=== PATIENT | female | born 1985 | race American Indian/Alaskan Native ===

== ENCOUNTER 2016-05-11 20:27 | Outpatient (CLI) | payer OTHER, MEDICAID ==
[2016-05-11] MEDS ORDERED: LACTATED RINGERS 500 ML IV ONE (21:28)
[2016-05-11 21:48] VITALS: BP 137/75
[2016-05-11 21:58] LABS: Bilirubin,Urine NEG (Negative); Blood,Urine NEG (Negative); Ketones,Urine TR mg/dL (Negative); Leukocyte Esterase,Urine NEG (Negative); Mucus,Urine 3+ /HPF; Nitrite,Urine NEG (Negative); Urobilinogen,Urine < 2.0 mg/dL (<2.0)
== END 2016-05-11 22:19 | disposition home or self-care (01) ==
LOC: TRG 20:27
PROVIDERS: ATTEND Obstetrics & Gynecology
DX: O26.892 Other specified pregnancy related conditions, second trimester (principal); O21.2 Late vomiting of pregnancy; M54.5 Low back pain; R10.2 Pelvic and perineal pain; Z3A.25 25 weeks gestation of pregnancy
CPT/HCPCS: 81001

== ENCOUNTER 2016-05-15 13:29 | Inpatient (IN) | payer OTHER, MEDICAID ==
--- NOTE | 2016-05-15 15:09 | History and Physical Report ---
History of Present Illness Date of examination: 05/15/16 Chief complaint: Migraine headache with blurred vision x 4 days. History of present illness: 31 yo at 26.1 weeks presenting with severe migraine headaches x 4 days with visual changes and unrelieved by medication (Fioricet, Imetrex and Phenergan). Pt with known CHTN on Labetalol 300mg po BID. BPs have ranged from 134-185/62-92 throughout the course of her . 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 History: herpes (2014), other (SAB x2) Family/Genetic History: none Social history: no significant social history - Obstetrical History Expected Date of Delivery: 08/20/16 Actual Gestation: 26 Week(s) 1 Day(s) : 3 Para: 1 Hx # Term Pregnancies: 1 Number of Pregnancies: 0 Spontaneous Abortions: 1 Induced : 0 Number of Living Children: 1 #1 Infant Gender: Male year: 2,[birth year] Birthweight: 6 lb 9.6 oz Method of Delivery: (primary c/s due to back surgery with plates and screws) Gestational age at delivery: 38 Complications: none Medications and Allergies Allergies Allergy/AdvReac Type Severity Reaction Status Date / Time No Known Allergies Allergy Unverified 08/08/15 14:46 Home Medications Medication Instructions Recorded Confirmed Last Taken Type Butalb/Acetamin/Caff 50-325-40 1 tab PO DAILY PRN 08/08/15 11/14/15 2 Weeks Ago History [Fioricet] Cholecalciferol (Vitamin D3) 1,000 unit PO DAILY 08/08/15 11/14/15 1 Month Ago History [Vitamin D] Lisinopril/Hydrochlorothiazide 1 tab PO DAILY 08/08/15 11/14/15 11/14/15 07:00 History [Lisinopril-Hctz 10-12.5 mg Tab] Labetalol [Normodyne TAB] 200 mg PO BID #60 tablet 03/23/16 Unknown Rx Active Meds: Active Medications Acetaminophen (Tylenol) 650 mg PO Q4H PRN PRN Reason: Pain MILD(1-3)/Fever >100.5/DUGGAN Acetaminophen/Butalbital/Caffeine (Fioricet) 2 tab PO Q4H PRN PRN Reason: Headache Lactated Ringer's (Lactated Ringers) mls @ 125 mls/hr IV DIRECT ZACARIAS Labetalol HCl (Normodyne) 300 mg PO BID [facility] Multivitamins/Iron/Calcium ( Vitamin) 1 each PO QDAY ZACARIAS Review of Systems All systems: negative Constitutional: other (pain due to headache 12/16) - Physical Exam Breasts: Positive: deferred Cardiovascular: Regular rate Lungs: Positive: Normal air movement Abdomen: Positive: other (Gravid) Uterus: Positive: enlarged Extremities: Positive: normal Deep Tendon Reflex Grade: Normal +2 - Obstetrical FHR comments: Not on monitor at the time of exam Results All other labs normal. Assessment and Plan A: 31yo at 26.1 weeks with migraine headache x 4 days with blurred vsion, not relieved by medication. P: Routine antepartum care Intermittent monitoring Neuro consultation for headache
[2016-05-15] MEDS ORDERED: APRESOLINE IV PRN (16:20)
--- NOTE | 2016-05-15 16:23 | Event Note ---
Date: 05/15/16 Patient is well known to me from a prior admission on 03/23/2016. She is a 31- year-old at 26 wks directly [facility] for migrainous headache. She has a past history of hypertension and migraine headaches and is currently on Labetalol 300mg BID and Fioricet w/ codiene. She has had severe migraine headaches since she became per patient. During her last admission, Neurology consult was requested. Patient however left AMA because she was not rxed a narcotic. It appears she still has not been seen by Neurology on outpatient basis. Patient claims the reasons are that she was informed of need for CT head and she declined that. She also claims to have insurance issues. She does give an oral history of numerous prior CT scans of the head prior to conception, she claims the last was performed sometime in July this year but she is unsure of the result. On the floor today, her blood pressure is within normal limits. She currently denies scotomata, abd pain or N/V. She has no vaginal bleeding, no loss of fluid, no contractions Plan at this time is to obtain HELLP labs, 24 hr urine protein and re-start her meds Consult has been placed to neurology but he unfortunately will be unavailable till tomorrow
[2016-05-15] MEDS: FIORICET PO PRN ×2 (16:31→20:19)
[2016-05-15 17:49] LABS: Hematocrit 32.2 % (30.3-42.9); Hemoglobin 10.3 gm/dl (10.1-14.3); Mean Corpuscular HGB Conc 32 % (30-34); Mean Corpuscular Hemoglobin 27 pg (28-32); Mean Corpuscular Volume 83 fl (79-97); Platelet Count 188 K/mm3 (140-440); Red Blood Count 3.86 M/mm3 (3.65-5.03); Red Cell Distribution Width 16.8 % (13.2-15.2); White Blood Count 11.5 K/mm3 (4.5-11.0)
[2016-05-15] MEDS ORDERED: NORMODYNE IV ONE (18:00)
[2016-05-15 18:09] LABS: Alanine Aminotransferase 20 units/L (7-56); Albumin 3.5 g/dL (3.9-5); Alkaline Phosphatase 74 units/L (35-129); Anion Gap 16 mmol/L; Bilirubin,Total 0.2 mg/dL (0.1-1.2); Blood Urea Nitrogen 6 mg/dL (7-17); Calcium 9.3 mg/dL (8.4-10.2); Carbon Dioxide 21 mmol/L (22-30); Chloride 98.6 mmol/L (98-107); Glucose 94 mg/dL (65-100); Potassium 3.9 mmol/L (3.6-5.0); Sodium 132 mmol/L (137-145); Total Protein 6.9 g/dL (6.3-8.2)
[2016-05-15 18:11] LABS: Bilirubin,Direct < 0.2 mg/dL (0-0.2)
[2016-05-15] MEDS: NORMODYNE PO SCH (22:23)
[2016-05-16] MEDS: LACTATED RINGERS 1,000 ML IV SCH ×2 (01:20→10:05)
[2016-05-16] MEDS ORDERED: ZOFRAN ONE ×2 (01:56→09:49)
[2016-05-16] MEDS ORDERED: ZOFRAN IV ONE (02:05)
[2016-05-16] MEDS: TYLENOL PO PRN ×3 (07:12→20:01)
--- NOTE | 2016-05-16 07:17 | Admit Criteria Form ---
Admission Criteria Documentation: HEADACHES Clinical Indications for Admission to Inpatient Care (Place 'X' for any and all applicable criteria): Admission is indicated for ANY ONE of the following(1)(2)(3)(4): [X]I. Inpatient admission required rather than observational care (Also use Headaches: Observation Care as appropriate) because of ANY ONE of the following: [X]a) Severe pain requiring acute inpatient management [ ]b) Altered mental status that is severe or persistent [ ]c) Vomiting or dehydration that is severe or persistent [ ]d) New-onset focal neurologic deficit that is severe or persistent [X]e) Hypertension requiring inpatient treatment [ ]f) Severe (new) neurologic findings requiring inpatient care as indicated by ANY ONE of following(9)(10): [ ]1) Papilledema [ ]2) Cerebral edema [ ]3) Mass effect on CT scan [ ]4) Cerebral bleeding, ischemia, or vasospasm(16) [ ]5) Hydrocephalus(17) [ ]6) Uncontrolled seizures [ ]g) IV infusion of anticoagulation, platelet inhibitors vasoactive, or antiarrhythmic medication. [ ]h) Cerebral bleeding, hydrocephalus, or vasospasm monitoring (16) [ ]i) Increased intracranial pressure or cerebral edema monitoring (17) [X]j) Other condition, treatment or monitoring requiring inpatient admission [ ]II. Unruptured but threatening aneurysm or vascular malformation [ ]III. Venous sinus thrombosis [ ]IV. Increased intracranial pressure [ ]V. Cerebral spinal fluid leak with decreased intracranial pressure [ ]. Medication-overuse headache that has failed all outpatient management options [ ]VII. Vasculitis (eg, giant cell (temporal) arteritis, central nervous system vasculitis) requiring IV corticosteroids, IV antithrombotic therapy, or inpatient monitoring (eg, visual symptoms or findings, other ischemic manifestations)[A](10)(11) Extended stay beyond goal length of stay may be needed for (27): [ ]a) Intractable migraine [ ]b) Subarachnoid or intracranial hemorrhage [ ]c) Malignant hypertension [ ]d) Detoxification from drug withdrawal in medication-overuse headache (29) The original [facility] [email or web address] content created by [facility] [email or web address] has been revised. The portions of the content which have been revised are identified through the use of italic text or in bold, and [facility] [email or web address] has neither reviewed nor approved the modified material.All other unmodified content is copyright [facility]. Please see references footnoted in the original [facility] edition 2016 Admission Criteria Met: Yes
[2016-05-16] MEDS ORDERED: STADOL IV PRN (08:00)
--- NOTE | 2016-05-16 08:03 | Ultrasound Report ---
BIOPHYSICAL PROFILE: Technique: Transabdominal ultrasound with Doppler interrogation. 2 - breathing movements 2 - movements 2 - posture and tone 2 - Qualitative amniotic fluid volume 8 - TOTAL SCORE OF POSSIBLE 8 Heart Rate (bpm) 165
[2016-05-16] MEDS ORDERED: PRENATAL VITAMIN PO SCH (10:00)
[2016-05-16] MEDS: NORMODYNE PO SCH (10:08)
[2016-05-16] MEDS: ZOFRAN IV PRN ×2 (14:05→20:00)
--- NOTE | 2016-05-16 14:29 | Progress Note ---
Assessment and Plan - Patient Problems (1) Chronic hypertension affecting Onset Date: 05/16/16 Current Visit: No Status: Chronic (2) Migraine Onset Date: 05/16/16 Current Visit: No Status: Chronic Qualifiers: Migraine type: periodic headache syndrome Status migrainosus presence: S Intractability: I (3) 26 weeks gestation of Onset Date: 05/16/16 Current Visit: Yes Status: Acute Plan to address problem: A: IUP @ 26 2/7 weeks Chronic hypertension affecting - BP's controlled on Labetolol 300mg BID Migraine headaches - unrelieved with Fioricet P: Continue with present management Awaiting 24hr urine collection Neurology consultation pending Subjective - Subjective Date of service: 05/16/16 Principal diagnosis: IUP @ 26 2/7 weeks; Chronic hypertension; Migraine Interval history: Pt still complains of migraine headaches, and was seen by the Neurologist today. +FM No bleeding or contractions. Patient reports: movement normal, no new complaints, no loss of fluid, no vaginal bleeding, no contractions Objective - Vital Signs Vital Signs: Vital Signs - 12hr 05/16/16 05/16/16 05/16/16 02:26 03:26 04:32 Temperature Pulse Rate 88 100 H 92 H Pulse Rate [ From Monitor] Respiratory Rate Blood Pressure 118/58 122/57 121/69 Blood Pressure [Right Arm] O2 Sat by Pulse Oximetry 05/16/16 05/16/16 05/16/16 05:26 06:26 07:03 Temperature Pulse Rate 95 H 96 H 91 H Pulse Rate [ From Monitor] Respiratory Rate Blood Pressure 118/65 120/63 Blood Pressure [Right Arm] O2 Sat by Pulse 98 Oximetry 05/16/16 05/16/16 05/16/16 07:04 07:06 07:08 Temperature 97.6 F Pulse Rate 93 H 85 Pulse Rate [ 96 H From Monitor] Respiratory 20 Rate Blood Pressure 131/60 Blood Pressure 131/60 [Right Arm] O2 Sat by Pulse 98 Oximetry 05/16/16 05/16/16 05/16/16 07:12 07:13 07:18 Temperature Pulse Rate 104 H 91 H Pulse Rate [ From Monitor] Respiratory 20 Rate Blood Pressure Blood Pressure [Right Arm] O2 Sat by Pulse 99 98 Oximetry 02/08/17 02/08/17 02/08/17 07:23 07:26 07:28 Temperature Pulse Rate 96 H 95 H 92 H Pulse Rate [ From Monitor] Respiratory Rate Blood Pressure 115/61 Blood Pressure [Right Arm] O2 Sat by Pulse 98 98 Oximetry 05/16/16 05/16/16 05/16/16 07:38 07:44 07:49 Temperature Pulse Rate 74 85 82 Pulse Rate [ From Monitor] Respiratory Rate Blood Pressure Blood Pressure [Right Arm] O2 Sat by Pulse 98 98 97 Oximetry 05/16/16 05/16/16 05/16/16 07:54 07:59 08:04 Temperature Pulse Rate 86 89 72 Pulse Rate [ From Monitor] Respiratory Rate Blood Pressure Blood Pressure [Right Arm] O2 Sat by Pulse 98 97 98 Oximetry 05/16/16 05/16/16 05/16/16 08:09 08:14 08:35 Temperature Pulse Rate 94 H 95 H Pulse Rate [ From Monitor] Respiratory 20 Rate Blood Pressure Blood Pressure [Right Arm] O2 Sat by Pulse 99 97 Oximetry 05/16/16 05/16/16 05/16/16 09:46 09:47 09:49 Temperature Pulse Rate 76 91 H 86 Pulse Rate [ From Monitor] Respiratory Rate Blood Pressure 143/61 Blood Pressure [Right Arm] O2 Sat by Pulse 95 94 Oximetry 05/16/16 05/16/16 05/16/16 09:50 09:53 09:55 Temperature Pulse Rate 86 82 73 Pulse Rate [ From Monitor] Respiratory Rate Blood Pressure Blood Pressure [Right Arm] O2 Sat by Pulse 96 93 96 Oximetry 05/16/16 05/16/16 05/16/16 10:00 10:01 10:06 Temperature Pulse Rate 72 88 78 Pulse Rate [ From Monitor] Respiratory Rate Blood Pressure Blood Pressure [Right Arm] O2 Sat by Pulse 95 94 98 Oximetry 05/16/16 05/16/16 05/16/16 10:08 10:09 10:11 Temperature Pulse Rate 84 81 82 Pulse Rate [ From Monitor] Respiratory Rate Blood Pressure 143/61 119/60 Blood Pressure [Right Arm] O2 Sat by Pulse 97 Oximetry 05/16/16 05/16/16 05/16/16 10:15 10:21 10:26 Temperature Pulse Rate 99 H 82 85 Pulse Rate [ From Monitor] Respiratory Rate Blood Pressure Blood Pressure [Right Arm] O2 Sat by Pulse 98 98 100 Oximetry 05/16/16 05/16/16 05/16/16 10:31 10:35 10:41 Temperature Pulse Rate 89 87 84 Pulse Rate [ From Monitor] Respiratory Rate Blood Pressure Blood Pressure [Right Arm] O2 Sat by Pulse 99 100 100 Oximetry 05/16/16 05/16/16 05/16/16 10:43 10:46 10:51 Temperature Pulse Rate 88 89 98 H Pulse Rate [ From Monitor] Respiratory Rate Blood Pressure 110/55 Blood Pressure [Right Arm] O2 Sat by Pulse 100 100 Oximetry 05/16/16 05/16/16 05/16/16 10:56 11:01 11:06 Temperature Pulse Rate 85 87 100 H Pulse Rate [ From Monitor] Respiratory Rate Blood Pressure Blood Pressure [Right Arm] O2 Sat by Pulse 100 100 95 Oximetry 05/16/16 05/16/16 05/16/16 11:13 11:43 11:55 Temperature Pulse Rate 89 86 90 Pulse Rate [ From Monitor] Respiratory Rate Blood Pressure 108/55 98/50 Blood Pressure [Right Arm] O2 Sat by Pulse 98 Oximetry 05/16/16 05/16/16 05/16/16 12:00 12:05 12:10 Temperature Pulse Rate 88 93 H 91 H Pulse Rate [ From Monitor] Respiratory Rate Blood Pressure Blood Pressure [Right Arm] O2 Sat by Pulse 97 98 97 Oximetry 05/16/16 05/16/16 05/16/16 12:13 12:29 12:34 Temperature Pulse Rate 90 102 H 90 Pulse Rate [ From Monitor] Respiratory Rate Blood Pressure 132/68 Blood Pressure [Right Arm] O2 Sat by Pulse 98 97 Oximetry 05/16/16 05/16/16 05/16/16 13:03 13:09 13:15 Temperature Pulse Rate 97 H 94 H 102 H Pulse Rate [ From Monitor] Respiratory Rate Blood Pressure Blood Pressure [Right Arm] O2 Sat by Pulse 98 98 97 Oximetry 05/16/16 05/16/16 05/16/16 14:01 14:02 14:07 Temperature Pulse Rate 93 H 87 85 Pulse Rate [ From Monitor] Respiratory 20 Rate Blood Pressure 128/60 Blood Pressure [Right Arm] O2 Sat by Pulse 98 97 Oximetry 05/16/16 05/16/16 05/16/16 14:12 14:17 14:22 Temperature Pulse Rate 86 85 89 Pulse Rate [ From Monitor] Respiratory Rate Blood Pressure 120/59 Blood Pressure [Right Arm] O2 Sat by Pulse 99 99 98 Oximetry - Exam Breasts: deferred Cardiovascular: Regular rate Abdomen: Present: normal appearance, soft Uterus: Present: normal FHR: category 1 Uterine Contraction Monitor Mode: External Uterine Contraction Pattern: Absent - Labs Labs: Abnormal Labs 05/15/16 05/15/16 Unknown Unknown WBC 11.5 H MCH 27 L RDW 16.8 H Sodium 132 L Carbon Dioxide 21 L BUN 6 L Creatinine 0.5 L Albumin 3.5 L Laboratory Results - last 24 hr 05/15/16 05/15/16 Unknown Unknown WBC 11.5 H RBC 3.86 Hgb 10.3 Hct 32.2 MCV 83 MCH 27 L MCHC 32 RDW 16.8 H Plt Count 188 Sodium 132 L Potassium 3.9 Chloride 98.6 Carbon Dioxide 21 L Anion Gap 16 BUN 6 L Creatinine 0.5 L Estimated GFR > 60 BUN/Creatinine Ratio 12.00 Glucose 94 Calcium 9.3 Total Bilirubin 0.2 Direct Bilirubin < 0.2 Indirect Bilirubin 0.0 AST 17 ALT 20 Alkaline Phosphatase 74 Total Protein 6.9 Albumin 3.5 L Albumin/Globulin Ratio 1.0
--- NOTE | 2016-05-16 19:42 | Discharge Summary ---
Providers - Providers Date of Admission: 05/16/16 09:24 Date of discharge: 05/16/16 Attending physician: KEITH FRYE MD 05/15/16 14:59 Consult to Physician [CONS] Routine Consulting Provider: ANDER BARNARD Reason For Exam: Migraine Place consult to:: KEMI Notified:: YES Phone number called:: [phone]- Was contact made?: Yes If yes, spoke with:: MALI Time called:: 16:00 05/16/16 15:16 Consult to Physician [CONS] Urgent Consulting Provider: DANITA BLAIR Reason For Exam: Migraines Notified:: Office Was contact made?: Yes Time called:: 15:20 Primary care physician: KEITH FRYE MD Hospitalization Reason for admission: IUP - , other (IUP @ 26 2/7 weeks; Chronic hypertension; Migraine headaches) Other procedures: none complications: none Discharge diagnosis: other (IUP @ 26 2/7 weeks; Chronic hypertension; Migraines) Hospital course: Patient is well known from a prior admission on 03/23/2016. She is a 31-year- old BF at 26 weeks directly admitted from [facility] for migraine headaches. She has a past history of chronic hypertension and migraine headaches and is currently on Labetalol 300mg BID and Fioricet w/ codiene. She has had severe migraine headaches since she became per patient. During her last admission, Neurology consult was requested, but she left AMA because she was denied narcotics. It appeared that she still was not been seen by a Neurologist on an outpatient basis because she was informed that she needed a head CT and she declined. Since admission, her blood pressure has been within normal limits, and she denied scotomata, abd pain or N/V. She had no vaginal bleeding, no loss of fluid, no contractions Her HELLP labs have been normal and her 24 hr urine showed 200mg protein. She was seen by the Neurologist but his report is not available at this time ( Dr Corral [phone]). She will be transferred to [facility] per Dr Perdomo ([phone]) since she has [employer] insurance. Condition at discharge: Good Disposition: DC/TX ANOTHER TYPE HEALTHCARE - Discharge Diagnoses (1) Chronic hypertension affecting Status: Chronic (2) Migraine Status: Chronic Qualifiers: Migraine type: periodic headache syndrome Status migrainosus presence: S Intractability: intractable Qualified Code(s): G43.C1 - Periodic headache syndromes in child or adult, intractable (3) 26 weeks gestation of Status: Acute Plan - Provider Discharge Summary Activity: routine Diet: routine Instructions: routine Additional instructions: [] Smoking cessation referral if applicable(refer to patient education folder for contact #) [] Refer to [facility] Booklet Call your doctor immediately for: * Fever > 100.5 * Heavy vaginal bleeding ( >1 pad per hour) * Severe persistent headache * Shortness of breath * Reddened, hot, painful area to leg or breast * Drainage or odor from incision. * Keep incision clean and dry at all times and follow doctor's instructions regarding bathing/showering - Follow up plan Follow up: KEITH DIAMOND MD [Primary Care Provider] - 7 Days
[2016-05-16 19:50] VITALS: BP 143/74
--- NOTE | 2016-05-17 07:19 | Consultation ---
ROOM#: [id number]. HISTORY OF PRESENT ILLNESS: This is a 31-year-old black female 3, para 1 (1 miscarriage) this is the 27th week of this patient who presents to [facility], room 2002. Consultation is for Dr. Reyes for evaluation and management of headaches. By the patient's history, she started having migraine headaches at age 17. These have become progressively more severe. She did not have them with her first , but that was a miscarriage. The second she had mild headaches, but does not specifically remember details of her headaches. After her second , she started on Ultram, Fioricet and [id number] medications for daily migraine headaches. Occasionally she took Imitrex this did not seem to help. With this nothing unusual has happened. She has suffered from no head trauma, no injuries of any type. The patient has not had any seizures. No preeclampsia, no hypertension. SOCIAL HISTORY: She does not smoke or drink. FAMILY HISTORY: Detailed family history taken from the patient, her brothers and sisters do not have similar headaches. Her mother has rare headaches but is not complicated. REVIEW OF SYSTEMS: Her health is generally good. She has not had any fevers. She is not taking any medications in the except for Fioricet. She denies any seizures or falls. She has not had any pain. Her description of her pain is across both sides of her forehead in the mid nasal area in the back of the neck. The pain is especially severe on exposure to light. Earlier today, she received an injection of Stadol. This does seem to help the headache, but she became very nauseated, received an injection of Zofran, which did seem to help. PHYSICAL EXAMINATION: VITAL SIGNS: On my examination, the blood pressure presently is 110/70, pulse rate 80, respirations 18. NEUROLOGIC: She is presently undergoing a pelvic ultrasound by the RN and those results are being assessed at present. The patient is noted to be photophobic attempts to keep her eye shut in the majority of the interview, but as she does open her eyes she has full ocular tracking with reactive pupils. Symmetrical face. Normal neck. No evidence of meningismus. Senior Consulting Manager strength is equal. Motor tone symmetrical. No tremors or asterixis. No motor tone abnormalities. IMPRESSION: The patient is 27th week of with migraine headaches. I agree with use of Stadol and the Zofran this is certainly an appropriate treatment. She had an imaging study done at [facility] about 2 years ago. By her report this was negative. PLAN: Reviewed and I am in agreement with the assessment. Based on the description, referred to as mixed tension migraine. Generally in there is a limited amount of medication that can be used certainly Stadol and Zofran are safe. I would not obviously trial Imitrex again or steroids or any narcotic medications for safety reasons. I might check a serum magnesium level and further assess whether supplementation of the magnesium is useful. I will follow the patient with you. JOB# [id number] NADIA/PREET
--- NOTE | 2016-05-17 23:05 | Consultation ---
HISTORY OF PRESENT ILLNESS: This patient was assessed for severe headaches. I spoke with Dr. Jarrett Lee, advised him I dictated a note diagnosing her as having migraine headaches and approved that she can take Stadol and Zofran with monitoring of the magnesium supplements. I did review her CT scan of the brain that was done at [facility] 2 years ago. The MRI scan was reviewed with Dr. Quinteros of the computer system at [facility]. The CT scan of the head was entirely normal. No abnormalities present. She had normal appearing pituitary sella. She had a normal savage and white matter, sinuses that were visualized were entirely normal as well. I will characterize this as an entirely normal CT scan, which was being done at that point for evaluation of headaches. Therefore, imaging studies are not necessary to be repeated at this point because the patient's symptoms have not essentially changed. This review of the CT scan was done at [facility] of computerized records on their back system. JOB# [id number] NADIA/PREET
== END 2016-05-16 20:55 | disposition other institution (70) | DRG 781 ==
LOC: TRG 13:29 → LD 14:59 → OBSVTOIN 05-16 09:24
PROVIDERS: ADMIT Obstetrics & Gynecology; ATTEND Obstetrics & Gynecology
DX: O26.892 Other specified pregnancy related conditions, second trimester (principal); Z68.42 Body mass index [BMI] 45.0-49.9, adult; O10.912 Unspecified pre-existing hypertension complicating pregnancy, second trimester; Z3A.26 26 weeks gestation of pregnancy; O99.212 Obesity complicating pregnancy, second trimester; E66.01 Morbid (severe) obesity due to excess calories; G43.911 Migraine, unspecified, intractable, with status migrainosus; G44.89 Other headache syndrome
CPT/HCPCS: 36415; 76819; 80048; 80074; 84156; 85027; G0378; J0595; J2405; J7120

== ENCOUNTER 2016-07-05 11:11 | Outpatient (CLI) | payer OTHER, MEDICAID ==
[2016-07-05] MEDS ORDERED: PERCOCET 5/325 PO ONE (12:39)
[2016-07-05 12:41] VITALS: BP 134/72
[2016-07-05 13:14] LABS: Hematocrit 33.8 % (30.3-42.9); Mean Corpuscular HGB Conc 33 % (30-34); Mean Corpuscular Hemoglobin 27 pg (28-32); Mean Corpuscular Volume 84 fl (79-97); Platelet Count 160 K/mm3 (140-440); Red Blood Count 4.05 M/mm3 (3.65-5.03); Red Cell Distribution Width 15.8 % (13.2-15.2); White Blood Count 10.5 K/mm3 (4.5-11.0)
[2016-07-05 13:23] LABS: Lactate Dehydrogenase 187 units/L (91-180); Uric Acid 3.7 mg/dL (3.5-7.6)
[2016-07-05 14:07] LABS: Bilirubin,Urine NEG (Negative); Blood,Urine NEG (Negative); Ketones,Urine 80 mg/dL (Negative); Leukocyte Esterase,Urine NEG (Negative); Mucus,Urine FEW /HPF; Nitrite,Urine NEG (Negative); Protein,Urine <15 mg/dL mg/dL (Negative); Urobilinogen,Urine < 2.0 mg/dL (<2.0)
== END 2016-07-05 14:15 | disposition left against medical advice (07) ==
LOC: TRG 11:11
PROVIDERS: ATTEND Obstetrics & Gynecology
DX: Z34.93 Encounter for supervision of normal pregnancy, unspecified, third trimester (principal); Z3A.33 33 weeks gestation of pregnancy
CPT/HCPCS: 36415; 59025; 81001; 82565; 83615; 84450; 84460; 84550; 85027

== ENCOUNTER 2016-07-13 20:27 | Observation (INO) | payer MEDICAID, OTHER ==
[2016-07-13] MEDS ORDERED: LACTATED RINGERS 2,000 ML ONE (20:51)
[2016-07-13] MEDS ORDERED: LACTATED RINGERS 1,000 ML IV ONE (21:34)
[2016-07-13] MEDS ORDERED: TYLENOL PO ONE (21:35)
[2016-07-13] MEDS ORDERED: ZOFRAN IV ONE (21:35)
[2016-07-13 22:11] LABS: Bilirubin,Urine NEG (Negative); Blood,Urine NEG (Negative); Ketones,Urine 20 mg/dL (Negative); Leukocyte Esterase,Urine NEG (Negative); Mucus,Urine 1+ /HPF; Nitrite,Urine NEG (Negative); Protein,Urine <15 mg/dL mg/dL (Negative); Urobilinogen,Urine < 2.0 mg/dL (<2.0)
[2016-07-13 22:22] LABS: Lactate Dehydrogenase 150 units/L (91-180); Uric Acid 3.6 mg/dL (3.5-7.6)
[2016-07-13 22:23] LABS: Hematocrit 32.5 % (30.3-42.9); Hemoglobin 10.7 gm/dl (10.1-14.3); Mean Corpuscular HGB Conc 33 % (30-34); Mean Corpuscular Hemoglobin 27 pg (28-32); Mean Corpuscular Volume 83 fl (79-97); Platelet Count 140 K/mm3 (140-440); Red Blood Count 3.94 M/mm3 (3.65-5.03); White Blood Count 10.9 K/mm3 (4.5-11.0)
--- NOTE | 2016-07-13 22:53 | History and Physical Report ---
History of Present Illness Date of examination: 07/13/16 Chief complaint: Severe headache with persistent intractable vomiting since 7:30 AM History of present illness: She is a 31-year-old BF at 35+6 wks who is well known from a prior admissions, she presents with severe migraine headache and persistent vomiting. She was previously a [facility] patient but transfered to [place]. She has a past history of chronic hypertension and Migraine headaches and was on Labetalol 300mg BID and Fioricet w/ codiene prior to D/C from this hospital on . She has had severe migraine headaches since she became per patient. During her last admission, Neurology consult was requested, she was seen by Dr. Corral who reviewed her CT scan obtained at [place] which was negative. His diagnosis was migraine headache and patient could have Stadol and Zofran. She has had no vaginal bleeding, no loss of fluid, no contractions Her HELLP labs have been normal and her 24 hr urine showed 200mg protein. She was transferred to [facility] per Dr Perdomo ([phone]) since she had [place] insurance. Patient returned to [facility] today. Complains of persistent intractable nausea/vomiting and severe migraine headaches since this morning. She claims she lost her [employer] insurance and has not been seen by a physician since June. She claims she was discharged on Inderal, Topamax but these medications have not helped. She claims only medication that helps was dilaudid which she was getting IV during her admission. 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 denies: gonorrhea, hepatitis B, hepatitis C, herpes, HIV, syphilis Social history: single, full code. denies: smoking, alcohol abuse, prescription drug abuse, IV drug use - Obstetrical History Expected Date of Delivery: 08/15/16 Actual Gestation: 35 Week(s) 3 Day(s) : 3 Para: 1 Medications and Allergies Allergies Allergy/AdvReac Type Severity Reaction Status Date / Time No Known Allergies Allergy Unverified 08/08/15 14:46 Home Medications Medication Instructions Recorded Confirmed Last Taken Type Butalb/Acetamin/Caff 50-325-40 1 tab PO DAILY PRN 08/08/15 05/16/16 2 Weeks Ago History [Fioricet] Labetalol [Normodyne TAB] 300 mg PO BID 05/16/16 05/16/16 Unknown History Vit-Fe Fumar-FA [ 1 tab PO QDAY 05/16/16 05/16/16 Unknown History Vitamin] Review of Systems Constitutional: chronic headaches, no fever, no chills, no sweats Eyes: photophobia Cardiovascular: no chest pain, no orthopnea, no palpitations, no edema, no syncope, no lightheadedness, no shortness of breath, no dyspnea on exertion Respiratory: no cough, no shortness of breath, no dyspnea on exertion Gastrointestinal: nausea, vomiting, no abdominal pain Genitourinary: no vaginal bleeding, no vaginal discharge, no leakage of fluid - Vital Signs Vital signs: Vital Signs Pulse BP Pulse Ox 97 H 140/73 99 07/13/16 21:01 07/13/16 21:01 07/13/16 21:01 Temp Pulse Resp BP Pulse Ox 97.6 F 76 18 131/67 99 07/13/16 21:22 07/13/16 22:12 07/13/16 21:22 07/13/16 21:53 07/13/16 22:12 - Physical Exam Cardiovascular: Regular rate, Normal S1, Normal S2 Lungs: Positive: Clear to auscultation Abdomen: Positive: normal appearance, soft. Negative: distention, tenderness, guarding, rigidity Extremities: Positive: normal - Obstetrical FHR: category 1 Results Result Diagrams: 07/13/16 21:41 07/13/16 21:41 Abnormal lab results 07/13/16 07/13/16 Range/Units 21:41 21:41 MCH 27 L (28-32) pg RDW 16.0 H (13.2-15.2) % Creatinine 0.5 L (0.7-1.2) mg/dL All other labs normal. Assessment and Plan A: 31-year-old at 35+6 weeks with CHTN and Migraines -New onset intractable nausea vomiting and severe migraine Issues -Numerous prior admissions for migraine headaches -Patient claims only dilaudid has helped with her headache -No care since lost insurance in June -On Topamax and propranolol -Blood pressure within normal at this time -s/p Primary LTCS -Desires permanent sterilization (consent signed 07/13/16) P: -Requested her records from [facility] -CT head (new onset intractable N/V w/ no response to Zofran) -BPP now -IV Dilaudid for pain control -Disposition after result Addendum: Reviewed notes obtained from [facility]. It appears patient was admitted for status migrainous at 28 weeks on 05/26/2016 at [facility]. She had negative CT head and inpatient neurology consultation. She was on labetalol for chronic hypertension and this was changed to Inderal 40 mg BID ( due to concern about Labtalol effect on migraine) she was also started on Topamax 50 mg twice a day and received IV Solu-Medrol. She was discharged and asked to follow up with neurologist at Dr. Stokes. Patient was seen on out patient's basis on 06/22/16 and 06/28/2016; she was 32+ 1 wks and 32+3 wks. She complained of continued headache and elevated BP home reading. She had not seen neurology as recommended, she canceled her appointment as she said - "she was not feeling well". Psych and neuro appointment was rescheduled for patient. She was again seen on 06/28/2016 on outpatient OB clinic. Patient claimed oxycodone easily usually breaks headaches but did not work that morning. She reported compliance with Inderal and Topamax. She had not been seen by neurology since discharge several weeks ago from the hospital patient also complaining of running out of her oxycodone which she usually takes twice a day given a refill. Was also strongly encouraged to follow up with neurology. - Patient Problems (1) 35 to 36 weeks gestation of Current Visit: Yes Status: Acute (2) Migraine Onset Date: 05/16/16 Current Visit: No Status: Chronic Qualifiers: Migraine type: periodic headache syndrome Status migrainosus presence: S Intractability: intractable Qualified Code(s): G43.C1 - Periodic headache syndromes in child or adult, intractable (3) Chronic hypertension affecting Onset Date: 05/16/16 Current Visit: No Status: Chronic (4) Limited care Current Visit: Yes Status: Acute Qualifiers: Trimester: T
[2016-07-13] MEDS ORDERED: DILAUDID IV ONE (23:46)
--- NOTE | 2016-07-14 01:14 | Cat Scan Report ---
FINAL REPORT PROCEDURE: CT HEAD/BRAIN WO CON TECHNIQUE: Computerized tomography of the head was performed without contrast material. HISTORY: severe headache at 35 wks COMPARISON: No prior studies are available for comparison. FINDINGS: Skull and scalp: Normal. Paranasal sinuses: There is moderate opacification of the maxillary sinuses. Ventricles and subarachnoid spaces: Normal. Cerebrum: No evidence of hemorrhage, acute infarction or mass . Cerebellum and brainstem: No evidence of hemorrhage, acute infarction or mass. Vasculature: Normal. Comments: None. IMPRESSION: There is no evidence of an acute intracranial process. Mild sinusitis.
[2016-07-14] MEDS ORDERED: DILAUDID IV PRN (01:21)
[2016-07-14] MEDS ORDERED: ZOFRAN IV SCH (02:00)
[2016-07-14] MEDS ORDERED: LACTATED RINGERS 1,000 ML IV SCH (02:00)
[2016-07-14] MEDS ORDERED: TYLENOL PO ONE (03:00)
[2016-07-14 04:00] VITALS: BP 136/66
--- NOTE | 2016-07-14 04:41 | Event Note ---
Date: 07/14/16 She was seen this morning. She still has nausea but no vomiting, still has a headache. CT head was negative, BPP was 8/8 and growth scan shows adequate growth. Patient still has not seen a neurologist on outpatient basis. Discussed all above with the patient, I advised neurology should be seen on outpatient basis. 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 Patient requested to be discharged on oxycodone tablets. Will discharge on oxycodone and Inderal. Topamax was prescribed by her prior provider
[2016-07-14] MEDS ORDERED: PERCOCET 5/325 PO ONE (04:42)
--- NOTE | 2016-07-14 04:48 | Discharge Summary ---
Providers - Providers Date of Admission: 07/14/16 02:30 Date of discharge: 07/14/16 Attending physician: ANDER BARNARD Primary care physician: ANDER BARNARD Hospitalization Reason for admission: IUP - (35+6 wks with severe headache and Intractable N/V), observation Discharge diagnosis: other (IUP at 35+6 weeks, Migraine headaches, Persistent and intractable vomiting) Pertinent studies: CT head negative Biophysical profile 11/13 growth scan adequate Hospital course: She is a 31-year-old BF at 35+6 wks who is well known from a prior admissions, she presented with severe migraine headache and persistent vomiting. She was previously a [facility] patient but transfered to [place]. She has a past history of chronic hypertension and Migraine headaches and was on Labetalol 300mg BID and Fioricet w/ codiene prior to D/C from this hospital on 05/16/16. She has had severe migraine headaches since she became per patient. During her last admission, Neurology consult was requested, she was seen by Dr. Corral who reviewed her CT scan obtained at [place] which was negative. His diagnosis was migraine headache and patient could have Stadol and Zofran. She has had no vaginal bleeding, no loss of fluid, no contractions Her HELLP labs have been normal and her 24 hr urine showed 200mg protein. She was however transferred to [facility] per Dr Perdomo ([phone]) since she had [place] insurance. Patient returned to [facility] triage today (07/13/16). Complains of persistent intractable nausea/vomiting and severe migraine headaches since this morning. She claims she lost her [employer] insurance and has not been seen by an OBGYN physician since June. She claims she was discharged on Inderal and Topamax but these medications have not helped. She claims only medication that helps was dilaudid which she was getting IV during her admission. Her blood pressure in triage was 130s over 90s Issues -31-year-old at 35+6 weeks with CHTN and Migraines -New onset intractable nausea vomiting and severe migraine -Numerous prior admissions for migraine headaches -Patient claims only dilaudid has helped with her headache -No care since lost insurance in June -On Topamax and propranolol -Blood pressure within normal at this time -s/p Primary LTCS -Desires permanent sterilization (consent signed 07/13/16) We obtained a CT head which was negative, biophysical profile which showed a score 8 over 8, and growth scan which was normal. Also requested for records from [facility]. Addendum: Reviewed notes obtained from [facility]. It appears patient was admitted for status migrainous at 28 weeks on 05/26/2016 at [facility]. She had negative CT head and inpatient neurology consultation. She was on labetalol for chronic hypertension and this was changed to Inderal 40 mg BID ( due to concern about Labtalol effect on migraine) she was also started on Topamax 50 mg twice a day and received IV Solu-Medrol. She was discharged and asked to follow up with neurologist at Dr. Stokes. Patient was seen on out patient's basis on 06/22/16 and 06/28/2016; she was 32+ 1 wks and 32+3 wks. She complained of continued headache and elevated BP home reading. She had not seen Neurology as recommended, she canceled her appointment as she said - "she was not feeling well". Psych and neuro appointment was rescheduled for patient. She was again seen on 06/28/2016 on outpatient OB clinic. Patient claimed oxycodone easily usually breaks headaches but did not work that morning. She reported compliance with Inderal and Topamax. She had not been seen by neurology since discharge several weeks ago from the hospital patient also complaining of running out of her oxycodone which she usually takes twice a day given a refill. Was also strongly encouraged to follow up with neurology. She was seen this morning (07/14/16). She still has nausea but no vomiting, still has a headache. Patient still has not seen a Neurologist on outpatient basis. Discussed all above with the patient, I advised Neurology should be seen on outpatient basis. 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 Patient requested to be discharged on oxycodone tablets. Will discharge on oxycodone and Inderal. Topamax was prescribed by her prior provider Condition at discharge: Good Disposition: DISCHARGED TO HOME OR SELFCARE - Discharge Diagnoses (1) 35 to 36 weeks gestation of Status: Acute (2) Migraine Status: Chronic Qualifiers: Migraine type: periodic headache syndrome Status migrainosus presence: S Intractability: intractable Qualified Code(s): G43.C1 - Periodic headache syndromes in child or adult, intractable (3) Chronic hypertension affecting Status: Chronic (4) Limited care Status: Acute Qualifiers: Trimester: T Plan - Discharge Medications Prescriptions: oxyCODONE /ACETAMINOPHEN [Percocet 5/325] 1 tab PO Q6HR PRN #30 tablet PRN Reason: Pain Propranolol [Inderal] 40 mg PO BID #60 tablet - Provider Discharge Summary Activity: routine, no heavy lifting 4 weeks, no strenuous exercise Diet: routine Instructions: other (call neurology and follow-up as recommended) Additional instructions: [] Smoking cessation referral if applicable(refer to patient education folder for contact #) [] Refer to [facility] Booklet Call your doctor immediately for: * Fever > 100.5 * Heavy vaginal bleeding ( >1 pad per hour) * Severe persistent headache * Shortness of breath * Reddened, hot, painful area to leg or breast * Drainage or odor from incision. * Keep incision clean and dry at all times and follow doctor's instructions regarding bathing/showering - Follow up plan Follow up: ANDER BARNARD MD [Primary Care Provider] - 7 Days
--- NOTE | 2016-07-14 10:15 | Ultrasound Report ---
ULTRASOUND BIOPHYSICAL PROFILE: History: Limited care Technique: Transabdominal ultrasound with Doppler interrogation. 2 - breathing movements 2 - movements 2 - posture and tone 2 - Qualitative amniotic fluid volume 8 - TOTAL SCORE OF POSSIBLE 8 Heart Rate (bpm) 156
--- NOTE | 2016-07-14 10:20 | Ultrasound Report ---
OB ULTRASOUND History: Limited care Technique: Transabdominal ultrasound with Doppler interrogation. Gestation: Single Position: Cephalic Amniotic Fluid: Normal CASH = 11.1 cm Placenta: Posterior Placental Grade: 2 Heart Rate: 156 BPM Cervical length: 3.5 cm (Normal > 3 cm) NEUROANATOMY VISUALIZED: Limited visualization ANATOMY VISUALIZED: Stomach Kidneys Bladder Diaphragm Heart 3 Vessel Cord SPINE VISUALIZED: Longitudinal The following are not demonstrated due to maternal body habitus or lie: Neuroanatomy, 4 chamber heart, abdominal cord insert. BPD: 8.2 cm = 33 w 0 d HC: 30.5 cm = 34 w 0 d AC: 28.7 cm = 32 w 5 d FL: 6.6 cm = 34 w 0 d HC/AC Ratio: 1.06 Cephalic Index: Estimated Weight: 2142 grams LMP: Uncertain Clinical age = w d EDC: US Gest. Age = 33 w 3 d EDC: 08/28/16
== END 2016-07-14 05:25 | disposition home or self-care (01) ==
LOC: TRG 20:27 → LD 07-14 02:30 → TRG 07-14 02:30
PROVIDERS: ADMIT Obstetrics & Gynecology Gynecology; ATTEND Obstetrics & Gynecology Gynecology
DX: O26.893 Other specified pregnancy related conditions, third trimester (principal); O10.913 Unspecified pre-existing hypertension complicating pregnancy, third trimester; O21.2 Late vomiting of pregnancy; G43.909 Migraine, unspecified, not intractable, without status migrainosus; Z3A.35 35 weeks gestation of pregnancy; Z98.890 Other specified postprocedural states
CPT/HCPCS: 36415; 70450; 76805; 76819; 81001; 82565; 83615; 84450; 84550; 85027; 96361; 96374; 96375; G0378; J1170; J2405; J7120

== ENCOUNTER 2016-07-15 11:34 | Outpatient (CLI) | payer MEDICAID, OTHER ==
[2016-07-15] MEDS ORDERED: LACTATED RINGERS 500 ML IV ONE (11:42)
[2016-07-15] MEDS ORDERED: IMODIUM PO PRN (12:16)
[2016-07-15 12:57] LABS: Hematocrit 31.6 % (30.3-42.9); Hemoglobin 10.4 gm/dl (10.1-14.3); Mean Corpuscular HGB Conc 33 % (30-34); Mean Corpuscular Hemoglobin 27 pg (28-32); Mean Corpuscular Volume 82 fl (79-97); Red Blood Count 3.84 M/mm3 (3.65-5.03); White Blood Count 10.2 K/mm3 (4.5-11.0)
[2016-07-15] MEDS: ZOFRAN IV PRN ×2 (13:02→16:00)
[2016-07-15 13:06] LABS: Red Cell Distribution Width 21.1 % (13.2-15.2)
[2016-07-15 13:13] LABS: Sodium TNR mmol/L (137-145)
[2016-07-15 13:14] LABS: Anion Gap TNR mmol/L; Carbon Dioxide TNR mmol/L (22-30); Chloride TNR mmol/L (98-107); Potassium TNR mmol/L (3.6-5.0)
[2016-07-15 13:15] LABS: BUN/Creatinine Ratio TNR; Blood Urea Nitrogen TNR mg/dL (7-17); Glucose TNR mg/dL (65-100)
[2016-07-15 13:16] LABS: Calcium TNR mg/dL (8.4-10.2)
[2016-07-15] MEDS: LACTATED RINGERS 1,000 ML IV SCH ×2 (13:48→17:28)
[2016-07-15 14:22] LABS: Bacteria,Urine 1+ /HPF (Negative); Bilirubin,Urine NEG (Negative); Blood,Urine NEG (Negative); Ketones,Urine 20 mg/dL (Negative); Leukocyte Esterase,Urine NEG (Negative); Mucus,Urine 1+ /HPF; Nitrite,Urine NEG (Negative); Protein,Urine <15 mg/dL mg/dL (Negative); Urobilinogen,Urine < 2.0 mg/dL (<2.0)
[2016-07-15 14:37] LABS: Anion Gap 16 mmol/L; Blood Urea Nitrogen 3 mg/dL (7-17); Calcium 8.8 mg/dL (8.4-10.2); Carbon Dioxide 20 mmol/L (22-30); Chloride 104.9 mmol/L (98-107); Glucose 90 mg/dL (65-100); Sodium 138 mmol/L (137-145)
[2016-07-15 14:41] LABS: Potassium 2.7 mmol/L (3.6-5.0)
[2016-07-15 15:32] VITALS: BP 163/74
[2016-07-15 15:36] LABS: Basophils % (Manual) 0 % (0.0-1.8); Blastocytes % (Manual) 0 %; Eosinophils % (Manual) 0 % (0.0-4.3)
[2016-07-15 15:37] LABS: Anisocytosis 1+; Diff Status Complete; Platelet Estimate Consistent w Auto
[2016-07-15 15:38] LABS: Platelet Count 238 K/mm3 (140-440)
[2016-07-15] MEDS ORDERED: TYLENOL PO PRN (15:59)
[2016-07-15] MEDS ORDERED: LACTATED RINGERS 1,000 ML IV SCH (16:00)
== END 2016-07-15 17:41 | disposition home or self-care (01) ==
LOC: TRG 11:34 → LD 11:40 → TRG 17:41
PROVIDERS: ATTEND Obstetrics & Gynecology
DX: O47.03 False labor before 37 completed weeks of gestation, third trimester (principal); Z3A.35 35 weeks gestation of pregnancy
CPT/HCPCS: 36415; 59025; 80048; 81001; 85007; 85025; 87400; 96360; 96361; 96374; 96376; J2405; J7120; 82962

== ENCOUNTER 2016-07-23 09:41 | Inpatient (IN) | payer MEDICAID ==
[2016-07-23] MEDS ORDERED: BICITRA PO ONE (11:15)
[2016-07-23] MEDS ORDERED: PEPCID IV ONE ×2 (11:15→15:00)
[2016-07-23] MEDS ORDERED: REGLAN IV ONE (11:15)
[2016-07-23 11:44] LABS: Basophils % (Auto) 0.3 % (0.0-1.8); Eosinophils % (Auto) 0.2 % (0.0-4.3); Hematocrit 33.2 % (30.3-42.9); Hemoglobin 10.7 gm/dl (10.1-14.3); Mean Corpuscular HGB Conc 32 % (30-34); Mean Corpuscular Hemoglobin 27 pg (28-32); Mean Corpuscular Volume 84 fl (79-97); Platelet Count 136 K/mm3 (140-440); Red Blood Count 3.93 M/mm3 (3.65-5.03); Red Cell Distribution Width 15.5 % (13.2-15.2); White Blood Count 10.1 K/mm3 (4.5-11.0)
[2016-07-23] MEDS ORDERED: LACTATED RINGERS 1,000 ML IV SCH ×2 (12:00→16:00)
[2016-07-23] MEDS ORDERED: PITOCin/NS 20 UNIT/1000ML DRIP 20 UNITS/1,000 ML BAG IV SCH ×2 (12:00→18:00)
--- NOTE | 2016-07-23 12:34 | History and Physical Report ---
History of Present Illness Date of examination: 07/23/16 Date of admission: 07/23/16 09:49 Chief complaint: Here for repeat C Section with BTL History of present illness: Pt is a 31yo BF EDC 08/20/16 EGA 36 0/7 weeks sent from [facility] for Repeat C Section due to elevated BP, IUGR 2% and variable deceleration in the office. She recieved care at [facility] since 7 weeks, and has had several admissions for BP monitoring and complaints of migraine headaches. She is currently on Labetolol 300mg BID, and has a history of a previous C Section. records are available. 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 History: herpes Family/Genetic History: none Social history: no significant social history, single - Obstetrical History Expected Date of Delivery: 08/20/16 Actual Gestation: 36 Week(s) 0 Day(s) : 3 Medications and Allergies Allergies Allergy/AdvReac Type Severity Reaction Status Date / Time No Known Allergies Allergy Unverified 08/08/15 14:46 Home Medications Medication Instructions Recorded Confirmed Last Taken Type Vit-Fe Fumar-FA [ 1 tab PO QDAY 05/16/16 07/23/16 07/23/16 01: 00 History Vitamin] 1 Propranolol [Inderal] 40 mg PO BID #60 tablet 07/14/16 07/23/16 07/22/16 01:00 Rx 1 Ferrous Sulfate [Feosol 325 MG tab] 325 mg PO BID #60 tablet 07/23/16 Unknown Rx HYDROcodone/APAP 5-325 [[place] 1 each PO Q6HR PRN #30 tablet 07/23/16 Unknown Rx 5/325] Ibuprofen [Motrin] 800 mg PO Q8HR PRN #30 tablet 07/23/16 Unknown Rx Vit W-Ca,Fe,FA(<1 mg) 1 each PO DAILY #30 tablet 07/23/16 Unknown Rx [ Vitamins] Active Meds: Active Medications Lactated Ringer's (Lactated Ringers) 1,000 mls @ 2,250 mls/hr IV PREOP ZACARIAS Stop: 07/24/16 12:27 Oxytocin/Sodium Chloride (Pitocin/Ns 20 Unit/1000ml Drip) 20 units in 1,000 mls @ 0 mls/hr IV TITR ZACARIAS PRN Reason: As Directed Review of Systems All systems: negative - Vital Signs Vital signs: Vital Signs Pulse BP 72 143/68 07/23/16 11:42 07/23/16 11:42 Temp Pulse Resp BP Pulse Ox 72 143/68 07/23/16 11:42 07/23/16 11:42 - Physical Exam Breasts: Positive: deferred Cardiovascular: Regular rate Lungs: Positive: Clear to auscultation Abdomen: Positive: normal appearance Genitourinary (Female): Positive: normal external genitalia Uterus: Positive: enlarged Extremities: Positive: normal - Obstetrical FHR: category 1 Uterine Contraction Monitor Mode: External Results Result Diagrams: 07/23/16 11:25 Abnormal lab results 07/23/16 Range/Units 11:25 MCH 27 L (28-32) pg RDW 15.5 H (13.2-15.2) % Plt Count 136 L (140-440) K/mm3 Lymph % (Auto) 12.3 L (13.4-35.0) % Seg Neutrophils % 82.0 H (40.0-70.0) % Seg Neutrophils # 8.2 H (1.8-7.7) K/mm3 All other labs normal. Ultrasound: report reviewed Assessment and Plan - Patient Problems (1) 36 weeks gestation of Onset Date: 07/23/16 Current Visit: Yes Status: Acute Plan to address problem: A: IUP @ 36 0/7 weeks Non -Reassuring surveillance Previous C Section Chronic hypertension IUGR Migraine headaches Desires permanent sterilization P: Admit to L&D for Repeat C Section with BTL per [facility] (2) Chronic hypertension affecting Onset Date: 05/16/16 Current Visit: No Status: Chronic (3) Migraine Onset Date: 05/16/16 Current Visit: No Status: Chronic Qualifiers: Migraine type: periodic headache syndrome Status migrainosus presence: S Intractability: intractable Qualified Code(s): G43.C1 - Periodic headache syndromes in child or adult, intractable (4) Previous delivery affecting Onset Date: 07/23/16 Current Visit: Yes Status: Acute
[2016-07-23] MEDS ORDERED: NACL 0.9% IR ONE (12:48)
[2016-07-23] MEDS ORDERED: WATER FOR IRRIG STERILE IR ONE (12:48)
[2016-07-23] MEDS ORDERED: FLUARIX QUAD 2016-2017(36 MOS+) IM ONE (12:55)
--- NOTE | 2016-07-23 14:12 | Anesthesia Consultation ---
Anesthesia Consult and Med Hx Date of service: 07/23/16 - Airway Anesthetic Teeth Evaluation: Good ROM Head & Neck: Adequate Mental/Hyoid Distance: Adequate Mallampati Class: Class II - Pulmonary Exam CTA: Yes - Cardiac Exam Cardiac Exam: RRR - Pre-Operative Health Status ASA Pre-Surgery Classification: ASA3 Proposed Anesthetic Plan: Epidural, Spinal - Pulmonary Hx Smoking: No Hx Asthma: No Hx Respiratory Symptoms: No SOB: No COPD: No Hx Pneumonia: No Hx Sleep Apnea: No - Cardiovascular System Hx Hypertension: Yes (CHTN) Hx Coronary Artery Disease: No Hx Heart Attack/AMI: No Hx Angina: No Hx Percutaneous Transluminal Coronary Angioplasty (PTCA): No Hx Cardia Arrhythmia: No Hx Pacemaker: No Hx Internal Defibrillator: No Hx Valvular Heart Disease: No Hx Heart Murmur: No Hx Peripheral Vascular Disease: No - Central Nervous System Hx Neuromuscular Disorder: No Hx Seizures: No CVA: No Hx Back Pain: No Hx Psychiatric Problems: No - Gastrointestinal Hx Ulcer: No Hx Gastroesophageal Reflux Disease: No - Endocrine Hx Renal Disease: No Hx End Stage Renal Disease: No Hx Cirrhosis: No Hx Liver Disease: No Hx Insulin Dependent Diabetes: No Hx Non-Insulin Dependent Diabetes: No Hx Thyroid Disease: No Hx Hypothyroidism: No Hx Hyperthyroidism: No - Hematic Hx Anemia: No Hx Sickle Cell Disease: No - Other Systems Hx Alcohol Use: No Hx Substance Use: No Hx Cancer: No Hx Obesity: Yes - Additional Comments Anesthesia Medical History Comments: plt 136
[2016-07-23] MEDS ORDERED: DILAUDID IV PRN (14:13)
[2016-07-23] MEDS ORDERED: NARCAN 0.4 MG/1 ML IV PRN ×2 (14:13→17:47)
[2016-07-23] MEDS ORDERED: PHENERGAN PO PRN (14:13)
[2016-07-23] MEDS ORDERED: PHENERGAN PR PRN (14:13)
[2016-07-23] MEDS ORDERED: ZOFRAN IV PRN (14:13)
--- NOTE | 2016-07-23 14:13 | Anesthesia Day of Surgery ---
Anesthesia Day of Surgery - Day of Surgery Patient Examined: Yes Patient H&P Reviewed: Yes Patient is NPO: Yes
[2016-07-23] MEDS ORDERED: REGLAN ONE (15:00)
[2016-07-23] MEDS ORDERED: BICITRA ONE (15:00)
[2016-07-23] MEDS ORDERED: SODIUM CHLORIDE FLUSH SYRINGE 10 ML IV NR ×2 (15:00→18:00)
[2016-07-23] MEDS ORDERED: ePHEDrine SULFATE ONE (15:57)
[2016-07-23] MEDS ORDERED: PEPCID IV NR (16:00)
[2016-07-23] MEDS ORDERED: REGLAN IV NR (16:00)
[2016-07-23] MEDS ORDERED: BICITRA PO NR (16:00)
[2016-07-23] MEDS ORDERED: MORPHINE ONE ×2 (16:15)
[2016-07-23] MEDS ORDERED: ANCEF ONE (16:30)
[2016-07-23] MEDS ORDERED: XYLOCAINE MPF 2% ONE (16:31)
[2016-07-23] MEDS ORDERED: DILAUDID ONE (16:34)
[2016-07-23] MEDS ORDERED: TORADOL ONE (16:35)
[2016-07-23] MEDS ORDERED: LACTATED RINGERS 1,000 ML ONE (17:13)
--- NOTE | 2016-07-23 17:45 | Operative Report ---
Operative Report Operative Report: Date of procedure: 07/23/2016 Pre-operative diagnosis: 1. Intrauterine at 36-0/7 weeks 2. Non- reassuring surveillance 3. Previous section 4. Chronic hypertension 5. Intrauterine growth restriction 6. Migraine headaches 7. Desires permanent sterilization Post-operative diagnosis: Same Procedure name(s): Repeat low transverse section with bilateral tubal ligation Surgeon: Jarrett Lee MD Subway Operator: None Anesthesia: Spinal anesthesia by Dr. Jin EBL: 700 mL Findings: A 2208 g female infant Apgars 8 at 1 minute 9 at 5 minutes. Clear amniotic fluid. Normal uterus with lower uterine segment adhesions. Normal tubes and ovaries bilaterally. Procedure: After the patient was prepped and draped in usual sterile fashion, and after satisfactory level of epidural anesthesia was obtained, the skin knife was used to make a transverse skin incision through the previous skin scar. The incision was excised down to layer of the fascia, which was nicked in the midline and extended laterally using the Bovie cautery. The rectus muscles were dissected off the rectus fascia both superiorly and inferiorly. The rectus bellies in the midline, and the peritoneum was entered under direct visualization. The peritoneal incision was extended superiorly and inferiorly. A bladder flap was created and the bladder blade was then placed. The uterus was scored in a curvilinear linear fashion, entered in the midline revealing clear amniotic fluid. The 's head was delivered onto the surgical field, and the oropharynx and nasopharynx were bulb suctioned. The rest of the infant's body was delivered, cord was doubly clamped and cut and the was handed to the waiting respiratory team. Cord blood was then obtained. The placenta was manually removed from the uterus, and the uterus removed from its normal anatomical position. After gentle uterine lavage, the incision was inspected and found to be without extensions. It was then closed in 2 layers using 0 Vicryl suture in a running interlocking fashion, the second layer imbricating the first. At this point, attention was turned to the tubal ligation. First the right fallopian tube was grasped using the [place], and after identifying the fimbriated end, the [place] clip was applied to the proximal portion of the tube. The same procedure was performed on the left fallopian tube. The tube was grasped using a [place], after first identifying the fimbriated end of the left fallopian tube, the [place] clip was applied to the proximal portion of the tube. After good hemostasis was achieved, copious amounts or irrigation was performed , and the gutters were suctioned free of blood and blood clots. The Tisseel sealant was sprayed across the uterine incision. The uterus was then returned to its normal anatomical position, and after excellent hemostasis assured, the peritoneum was reapproximated using 3-0 Vicryl suture in a running interlocking fashion, and then the rectus muscles were reapproximated using 3-0 Vicryl suture in a [id number] configuration. The fascia was then reapproximated using 0 Vicryl suture in running interlocking fashion. The subcutaneous layer was made hemostatic using Bovie cautery, the Tisseel sealant was sprayed across the fascial incision and the skin edges reapproximated using 4-0 Vicryl suture in a subcuticular fashion. Patient tolerated the procedure well was transported to recovery in stable condition.
[2016-07-23] MEDS ORDERED: ANUCORT-HC PR PRN (17:47)
[2016-07-23] MEDS ORDERED: MILK OF MAGNESIA PO PRN (17:47)
[2016-07-23] MEDS ORDERED: LANSINOH TP PRN (17:47)
[2016-07-23] MEDS ORDERED: SENOKOT PO PRN (17:47)
[2016-07-23] MEDS ORDERED: TYLENOL PO PRN (17:47)
[2016-07-23] MEDS ORDERED: MYLICON PO PRN (17:47)
[2016-07-23] MEDS ORDERED: TUCKS PAD TP PRN (17:47)
[2016-07-23] MEDS: DILAUDID IV PRN ×2 (18:06→21:50)
[2016-07-23] MEDS ORDERED: APRESOLINE IV PRN (18:07)
--- NOTE | 2016-07-23 18:26 | Post Anesthesia Evaluation ---
- Post Anesthesia Evaluation Patient Participated: Yes Airway Patent: Yes Stable Respiratory Function: Yes Temp > 96.8F: Yes Pain Manageable: Yes Adequeate Hydration: Yes Anesthesia Complications: No Block Receding Appropriately: Yes
[2016-07-23] MEDS: NORMODYNE PO SCH (21:49)
[2016-07-23] MEDS: D5LR 1,000 ML IV SCH (21:57)
[2016-07-23] MEDS ORDERED: BENADRYL IV PRN (22:04)
[2016-07-23] MEDS: TORADOL IV PRN (23:05)
[2016-07-23] MEDS: ANCEF/NS 1 GM/50 ML 1 GM/50 ML BAG IV SCH (23:59)
[2016-07-24] MEDS: DILAUDID IV PRN (02:00)
[2016-07-24] MEDS: D5LR 1,000 ML IV SCH (05:50)
[2016-07-24] MEDS: TORADOL IV PRN (05:51)
--- NOTE | 2016-07-24 07:48 | Progress Note ---
Subjective Date of service: 07/24/16 Interval history: 1st POD after Patient is in the bed, comfortable. Pain is well controlled with pain meds. Ambulated well. No residual neurological deficit. No anesthesia complications Objective - Constitutional Vitals: Vital Signs - 12hr 07/23/16 07/23/16 07/23/16 21:49 21:50 23:05 Temperature Pulse Rate 90 Pulse Rate [ From Monitor] Respiratory 20 20 Rate Blood Pressure 153/72 Blood Pressure [Left Arm] 07/23/16 07/24/16 07/24/16 23:55 02:00 05:30 Temperature 98.7 F 98.6 F Pulse Rate Pulse Rate [ 84 70 From Monitor] Respiratory 20 20 20 Rate Blood Pressure Blood Pressure 117/55 141/66 [Left Arm] 07/24/16 05:51 Temperature Pulse Rate Pulse Rate [ From Monitor] Respiratory 20 Rate Blood Pressure Blood Pressure [Left Arm] - Labs CBC & Chem 7: 07/23/16 11:25 Labs: Abnormal lab results 07/23/16 Range/Units 11:25 MCH 27 L (28-32) pg RDW 15.5 H (13.2-15.2) % Plt Count 136 L (140-440) K/mm3 Lymph % (Auto) 12.3 L (13.4-35.0) % Seg Neutrophils % 82.0 H (40.0-70.0) % Seg Neutrophils # 8.2 H (1.8-7.7) K/mm3
[2016-07-24 07:51] LABS: Hemoglobin 9.7 gm/dl (10.1-14.3)
[2016-07-24] MEDS: ANCEF/NS 1 GM/50 ML 1 GM/50 ML BAG IV SCH (08:00)
[2016-07-24] MEDS: NORMODYNE PO SCH ×2 (09:51→22:40)
[2016-07-24] MEDS: PRENATAL VITAMIN PO SCH (09:51)
[2016-07-24] MEDS: FEOSOL PO SCH (09:51)
--- NOTE | 2016-07-24 10:02 | Progress Note ---
Assessment and Plan A: POD 1 S/P Repeat LTCS VSS with slight elevation of BP. Labetalol 300mg BID Ambulating well P: Continue PP care Continue to monitor BP Encourage ambulation Encourage use of pain meds as needed. Subjective - Subjective Date of service: 07/24/16 Principal diagnosis: POD 1 Interval history: Pt is a 31yo BF EDC 08/20/16 EGA 36 0/7 weeks sent from [facility] for Repeat C Section due to elevated BP, IUGR 2% and variable deceleration in the office. She recieved care at [facility] [place] since 7 weeks, and has had several admissions for BP monitoring and complaints of migraine headaches. She is currently on Labetolol 300mg BID, and has a history of a previous C Section. records are available. Patient reports: appetite normal, voiding normally, flatus, ambulating normally [place]: in NICU Objective - Vital Signs Latest vital signs: Vital Signs Temp Pulse Pulse Resp BP BP Pulse Ox 07/24/16 05:51 20 07/24/16 05:30 98.6 F 70 20 141/66 07/24/16 02:00 20 07/23/16 23:55 98.7 F 84 20 117/55 07/23/16 23:05 20 07/23/16 21:50 20 07/23/16 21:49 90 153/72 07/23/16 19:12 98.6 F 81 18 179/77 07/23/16 18:40 97.5 F L 63 20 157/75 07/23/16 18:25 66 20 177/87 07/23/16 18:10 60 17 168/80 07/23/16 18:06 16 07/23/16 17:55 71 13 179/62 07/23/16 17:45 59 L 15 175/69 07/23/16 17:41 64 20 170/83 07/23/16 17:35 57 L 14 158/86 07/23/16 17:30 66 17 143/80 99 07/23/16 17:25 61 17 159/71 99 07/23/16 17:22 98.1 F 61 17 161/74 99 07/23/16 15:10 96 H 180/86 07/23/16 15:07 92 H 191/90 07/23/16 14:32 87 184/91 07/23/16 13:09 98.1 F 16 07/23/16 11:42 72 143/68 Intake and Output 07/23/16 07/24/16 07/24/16 22:59 06:59 14:59 Intake Total 3100 1240 Output Total 450 1000 Balance 2650 240 Intake: IV 3100 1000 D5lr 1,000 ml @ 125 mls/ 1000 hr IV DIRECT ZACARIAS Rx#: [id number] Intake, Free Water 240 Output: Urine 450 1000 Indwelling Catheter 1000 Other: Total, Output Amount 400 Estimated Blood Loss 700 - Exam Cardiovascular: Present: Regular rate Lungs: Present: Normal air movement Abdomen: Present: normal bowel sounds Vulva: both: normal (scant lochia) Uterus: Present: fundal height below umbilicus Extremities: Present: normal Deep Tendon Reflex Grade: Normal +2 Incision: Present: dry, dressed - Labs Labs: Abnormal lab results 07/23/16 07/24/16 Range/Units 11:25 07:03 Hgb 9.7 L (10.1-14.3) gm/dl Hct 30.0 L (30.3-42.9) % MCH 27 L (28-32) pg RDW 15.5 H (13.2-15.2) % Plt Count 136 L (140-440) K/mm3 Lymph % (Auto) 12.3 L (13.4-35.0) % Seg Neutrophils % 82.0 H (40.0-70.0) % Seg Neutrophils # 8.2 H (1.8-7.7) K/mm3
[2016-07-24] MEDS: PERCOCET 5/325 PO PRN ×2 (11:17→22:44)
[2016-07-24] MEDS ORDERED: BOOSTRIX IM ONE (17:49)
[2016-07-24] MEDS ORDERED: M-M-R II VACCINE SUB-Q ONE (17:49)
[2016-07-24] MEDS: MOTRIN PO PRN ×2 (18:47→20:09)
[2016-07-24] MEDS: NORCO 5/325 PO PRN (20:08)
[2016-07-25] MEDS ORDERED: BOOSTRIX IM ONE (00:15)
[2016-07-25] MEDS: PERCOCET 5/325 PO PRN ×2 (09:35→18:45)
[2016-07-25] MEDS: NORMODYNE PO SCH ×2 (09:35→22:18)
[2016-07-25] MEDS: PRENATAL VITAMIN PO SCH (09:35)
[2016-07-25] MEDS: FEOSOL PO SCH (09:35)
--- NOTE | 2016-07-25 10:42 | Progress Note ---
Assessment and Plan A: POD #2 CHTN Diarrhea Asymptomatic Anemia P: Increase FESO4 325mg to TID Lomotil PO q 6 hours PRN Subjective - Subjective Date of service: 07/25/16 Principal diagnosis: POD 1 Patient reports: appetite normal, voiding normally, pain well controlled, flatus , bowel movement (Daiarrhea, liquid stools about 1.5 hours x 1.5 Days) [place]: doing well, bottle feeding Objective - Vital Signs Latest vital signs: Vital Signs Temp Pulse Pulse Pulse Resp BP BP 07/25/16 08:35 98.6 F 94 H 16 155/78 07/25/16 00:00 98.4 F 65 20 155/72 07/24/16 22:40 89 145/69 07/24/16 21:50 89 145/69 07/24/16 16:34 98.1 F 66 20 158/60 07/24/16 12:19 98.5 F 70 22 140/84 Intake and Output 07/24/16 07/25/16 07/25/16 22:59 06:59 14:59 Intake Total 245 120 240 Output Total 1 Balance 244 120 240 Intake: IV 125 PITOCin/NS 20 UNIT/1000ML 125 DRIP 20 units In 1,000 ml @ 250 mls/hr IV DIRECT ZACARIAS Rx#:[id number] Oral 120 120 240 Output: Urine/Stool Mix 1 Other: Total, Intake Amount 120 120 240 Total, Output Amount 1 # Voids Void 1 1 1 - Exam Breasts: Present: normal Cardiovascular: Present: Regular rate Lungs: Present: Clear to auscultation, Normal air movement Abdomen: Present: normal appearance, soft Uterus: Present: normal, firm, fundal height below umbilicus Extremities: Present: normal Incision: Present: normal, dry, intact
[2016-07-25] MEDS ORDERED: LOMOTIL PO PRN (11:00)
[2016-07-25] MEDS: NORCO 5/325 PO PRN (22:18)
[2016-07-25] MEDS: MOTRIN PO PRN (22:18)
--- NOTE | 2016-07-26 03:21 | Progress Note ---
Assessment and Plan A: POD #3 CHTN Asymptomatic Anemia P: Follow Routine PostOp Orders D/C Home today RTO in One Week Subjective - Subjective Date of service: 07/26/16 Principal diagnosis: POD 1 Patient reports: appetite normal, voiding normally, flatus, bowel movement ( Normal BMs, Diarrhea resolved), ambulating normally : doing well, bottle feeding Objective - Vital Signs Latest vital signs: Vital Signs Temp Pulse Pulse Pulse Resp BP BP 07/26/16 00:00 98.2 F 86 18 07/25/16 22:18 98 H 98 H 131/59 07/25/16 16:00 97.7 F 90 16 170/78 07/25/16 09:35 155/78 07/25/16 08:35 98.6 F 94 H 16 155/78 BP 07/26/16 00:00 153/72 07/25/16 22:18 131/59 07/25/16 16:00 07/25/16 09:35 07/25/16 08:35 Intake and Output 07/25/16 07/25/16 07/26/16 14:59 22:59 06:59 Intake Total 240 600 Balance 240 600 Intake: Oral 240 600 Other: Total, Intake Amount 240 240 # Voids Void 1 1 - Exam Breasts: Present: normal Lungs: Present: Clear to auscultation Abdomen: Present: normal appearance, soft, normal bowel sounds Uterus: Present: normal, firm, fundal height below umbilicus Extremities: Present: normal Incision: Present: normal, dry, intact
--- NOTE | 2016-07-26 03:23 | Discharge Summary ---
Providers - Providers Date of Admission: 07/23/16 09:49 Date of discharge: 07/26/16 Attending physician: KEITH FRYE MD Primary care physician: KEITH FRYE MD Hospitalization Reason for admission: section Delivery: Procedure: bilateral tubal ligation, repeat low transverse Episiotomy: none Laceration: none Incision: normal, dry, intact complications: other (Diarrhea (resolved)) Discharge diagnosis: IUP at term delivered [place] baby: female Condition at discharge: Good Disposition: DISCHARGED TO HOME OR SELFCARE Plan - Discharge Medications Prescriptions: Ferrous Sulfate [Feosol 325 MG tab] 325 mg PO BID #60 tablet HYDROcodone/APAP 5-325 [[place] 5/325] 1 each PO Q6HR PRN #30 tablet PRN Reason: Pain Ibuprofen [Motrin] 800 mg PO Q8HR PRN #30 tablet PRN Reason: Moder Pain Unrelieved By [place] Vit W-Ca,Fe,FA(<1 mg) [ Vitamins] 1 each PO DAILY #30 tablet - Provider Discharge Summary Activity: routine, no sex for 6 weeks, no heavy lifting 4 weeks, no strenuous exercise Diet: routine Instructions: routine Additional instructions: [] Smoking cessation referral if applicable(refer to patient education folder for contact #) [] Refer to [facility] Booklet Call your doctor immediately for: * Fever > 100.5 * Heavy vaginal bleeding ( >1 pad per hour) * Severe persistent headache * Shortness of breath * Reddened, hot, painful area to leg or breast * Drainage or odor from incision. * Keep incision clean and dry at all times and follow doctor's instructions regarding bathing/showering - Follow up plan Follow up: UNIQUE BERG CNM [Advanced Practice Nurse] - 7 Days
[2016-07-26] MEDS: NORCO 5/325 PO PRN (05:59)
[2016-07-26] MEDS: MOTRIN PO PRN (05:59)
[2016-07-26] MEDS: PERCOCET 5/325 PO PRN (10:53)
[2016-07-26] MEDS: NORMODYNE PO SCH (10:54)
[2016-07-26] MEDS: FEOSOL PO SCH (10:54)
[2016-07-26] MEDS: PRENATAL VITAMIN PO SCH (10:55)
[2016-07-26 11:50] VITALS: BP 142/72
== END 2016-07-26 11:15 | disposition home or self-care (01) | DRG 765 ==
LOC: TRG 09:41 → LD 09:49 → OB 19:01
PROVIDERS: ADMIT Obstetrics & Gynecology; ATTEND Obstetrics & Gynecology
PROC: 10D00Z1 Extraction of Products of Conception, Low, Open Approach (ICD-10-PCS; principal; 2016-07-23)
PROC: 0UL70CZ Occlusion of Bilateral Fallopian Tubes with Extraluminal Device, Open Approach (ICD-10-PCS; 2016-07-23)
DX: O10.92 Unspecified pre-existing hypertension complicating childbirth (principal); Z68.42 Body mass index [BMI] 45.0-49.9, adult; O34.211 Maternal care for low transverse scar from previous cesarean delivery; O36.5930 Maternal care for other known or suspected poor fetal growth, third trimester, not applicable or unspecified; O99.214 Obesity complicating childbirth; E66.01 Morbid (severe) obesity due to excess calories; G43.919 Migraine, unspecified, intractable, without status migrainosus; O90.81 Anemia of the puerperium; D64.9 Anemia, unspecified; O99.63 Diseases of the digestive system complicating the puerperium; R19.7 Diarrhea, unspecified; Z3A.36 36 weeks gestation of pregnancy; Z37.0 Single live birth; Z30.2 Encounter for sterilization
CPT/HCPCS: 36415; 85014; 85018; 85025; 86850; 86900; 86901; 88307; 90471; 90686; 90715; C9250; J0360; J0690; J1170; J1200; J1885; J2270; J2590; J2765; J7120; J7121; Q0169

== ENCOUNTER 2020-03-23 10:05 | Day surgery (SDC) | payer BC, MEDICAID, OTHER ==
--- NOTE | 2020-03-23 09:09 | Short Stay Summary ---
Short Stay Documentation Date of service: 03/23/20 Narrative H&P: 35-year-old -0-1-2 with a history of a retained IUD. The patient has had internal fixation of her hip and has significant pain with exam and unable to position the patient properly for removal of her IUD. - History Principal diagnosis: Retained IUD Past Medical History: arthritis, hypertension, other (Joint pain) Past Surgical History: , Other (Hip surgery; hysteroscopy) Social history: single - Allergies and Medications Current Medications: Allergies No Known Allergies Allergy (Unverified 03/22/20 17:40) Home Medications Medication Instructions Recorded Confirmed Last Taken Type amLODIPine [Norvasc] 5 mg PO DAILY 03/22/20 03/22/20 Unknown History lisinopriL [Zestril TAB] 40 mg PO QDAY 03/22/20 03/22/20 Unknown History - Physical exam General appearance: no acute distress Integumentary: no rash HEENT: Atraumatic Lungs: Clear to auscultation Breasts: deferred Heart: Regular rate Gastrointestinal: normal Female Genitourinary: deferred Rectal Exam: deferred Extremities: abnormal (Joint pain) - Brief post op/procedure progress note Date of procedure: 03/23/20 Pre-op diagnosis: Retained IUD Post-op diagnosis: same Procedure: Removal of IUD Anesthesia: MAC Surgeon: BENJY THOMPSON Estimated blood loss: none Pathology: list (Mirena IUD) Specimen disposition: to lab Condition: stable - Hospital course Hospital course: The patient was admitted the day of surgery and underwent removal of her IUD. See operative note for details of surgery. Her postoperative course was uneventful. - Disposition Condition at discharge: Good Disposition: DC-01 TO HOME OR SELFCARE - Discharge Diagnoses (1) IUD mechanical complication Status: Acute Short Stay Discharge Plan Activity: no restrictions Diet: regular Additional Instructions: Follow-up is not required Follow-up as needed Prescriptions: Ibuprofen [Motrin] 800 mg PO Q8HR PRN #30 tablet PRN Reason: Pain , Severe (7-10)
--- NOTE | 2020-03-23 10:41 | Anesthesia Day of Surgery ---
Anesthesia Day of Surgery - Day of Surgery Patient Examined: Yes Patient H&P Reviewed: Yes Patient is NPO: Yes
--- NOTE | 2020-03-23 10:44 | Anesthesia Consultation ---
Anesthesia Consult and Med Hx Date of service: 03/23/20 - Airway Anesthetic Teeth Evaluation: Chipped ROM Head & Neck: Adequate Mental/Hyoid Distance: Adequate Mallampati Class: Class II Intubation Access Assessment: Good - Pre-Operative Health Status ASA Pre-Surgery Classification: ASA3 Proposed Anesthetic Plan: General - Pulmonary Hx Smoking: No Hx Asthma: No Hx Respiratory Symptoms: No (+2FS) SOB: No COPD: No Home Oxygen Therapy: No Hx Pneumonia: No Hx Sleep Apnea: No - Cardiovascular System Hx Hypertension: Yes Hx Coronary Artery Disease: No Hx Heart Attack/AMI: No Hx Angina: No Hx Percutaneous Transluminal Coronary Angioplasty (PTCA): No Hx Cardia Arrhythmia: No Hx Pacemaker: No Hx Internal Defibrillator: No Hx Valvular Heart Disease: No Hx Heart Murmur: No Hx Peripheral Vascular Disease: No - Central Nervous System Hx Neuromuscular Disorder: No Hx Seizures: No CVA: No Hx Back Pain: No Hx Psychiatric Problems: No - Gastrointestinal Hx Ulcer: No Hx Gastroesophageal Reflux Disease: No - Endocrine Hx Renal Disease: No Hx End Stage Renal Disease: No Hx Cirrhosis: No Hx Liver Disease: No Hx Insulin Dependent Diabetes: No Hx Non-Insulin Dependent Diabetes: No Hx Thyroid Disease: No Hx Hypothyroidism: No Hx Hyperthyroidism: No - Hematic Hx Anemia: No Hx Sickle Cell Disease: No - Other Systems Hx Alcohol Use: No Hx Substance Use: No Hx Cancer: No Hx Obesity: Yes
[2020-03-23] MEDS ORDERED: HYDROmorphone 1 MG/1 ML INJ IV PRN ×2 (11:00)
[2020-03-23] MEDS ORDERED: MIDAZOLAM 2 MG/2 ML INJ IV NR ×3 (11:00→13:00)
[2020-03-23] MEDS ORDERED: ONDANSETRON 4 MG/2 ML INJ IV PRN (11:00)
[2020-03-23] MEDS ORDERED: LACTATED RINGERS 1,000 ML IV SCH (11:00)
[2020-03-23] MEDS ORDERED: propofoL 200 MG/20 ML VIAL IV ONE (12:16)
[2020-03-23] MEDS ORDERED: HYDROmorphone 1 MG/1 ML INJ ONE (12:16)
[2020-03-23] MEDS ORDERED: LIDOCAINE MPF (2%) 20 MG/1 ML VIAL 5 ML ONE (12:17)
[2020-03-23] MEDS ORDERED: dexAMETHasone 20 MG/5 ML VIAL ONE (12:47)
[2020-03-23] MEDS ORDERED: KETOROLAC 30 MG/1 ML INJ ONE (12:47)
[2020-03-23] MEDS ORDERED: ONDANSETRON 4 MG/2 ML INJ ONE (12:47)
--- NOTE | 2020-03-23 13:01 | Operative Report ---
Operative Report Operative Report: Date of surgery: March 23, 2020 Preoperative diagnosis: Retained IUD; limited range of motion of lower ext remities Postoperative diagnosis: Same as above Procedure: Removal of intrauterine device Surgeon: Yissel Hardy M.D. Anesthesia: MAC Estimated blood loss: None Findings: Normal cervix with visualization of IUD strings Indication: 35-year-old -0-0-2 with a history of limited range of motion of her lower extremities secondary to previous hip surgery. The patient was unable to tolerate removal of the IUD in office secondary to the pain experience in her joints. Procedure: The patient was taken to the operating room and given general endotracheal anesthesia without complication. The patient is prepped and draped in a normal sterile fashion. A bivalve speculum was placed in the patient's vagina. The IUD strings were easily visualized. The [place] forcep was used to grasp this IUD strings and the IUD was removed without difficulty. No evidence of any active bleeding at the conclusion of the case. The vaginal instruments were then removed atraumatically. The patient was then successfully extubated and taken to the recovery room in stable condition. All sponge laps and needle counts were correct x2.
--- NOTE | 2020-03-23 17:45 | Post Anesthesia Evaluation ---
- Post Anesthesia Evaluation Patient Participated: Yes Airway Patent: Yes Stable Respiratory Function: Yes Nausea/Vomiting: No Temp > 96.8F: Yes Pain Manageable: Yes Adequeate Hydration: Yes Anesthesia Complications: No Block Receding Appropriately: Not Applicable Patient on Ventilator: No
[2020-03-23 19:48] VITALS: BP 145/86
== END 2020-03-23 10:06 | disposition home or self-care (01) ==
LOC: OR 10:05
PROVIDERS: ATTEND Obstetrics & Gynecology
DX: Z30.432 Encounter for removal of intrauterine contraceptive device (principal); T83.39XA Other mechanical complication of intrauterine contraceptive device, initial encounter; G43.909 Migraine, unspecified, not intractable, without status migrainosus; I10 Essential (primary) hypertension; E66.9 Obesity, unspecified; Z79.899 Other long term (current) drug therapy; Z98.891 History of uterine scar from previous surgery; Z98.890 Other specified postprocedural states; Z68.42 Body mass index [BMI] 45.0-49.9, adult; Y92.89 Other specified places as the place of occurrence of the external cause; Y82.8 Other medical devices associated with adverse incidents
CPT/HCPCS: 58301; 81025; 88300; J1100; J1170; J1885; J2250; J2405; J2704; J7120; 88302

== ENCOUNTER 2020-07-23 21:22 | Observation (INO) | payer SELFPAY ==
[2020-07-24] MEDS ORDERED: ONDANSETRON 4 MG/2 ML INJ IV ONE ×2 (00:18→05:00)
[2020-07-24] MEDS ORDERED: HYDROmorphone 1 MG/1 ML INJ IV ONE (00:18)
[2020-07-24 00:44] LABS: Basophils # (Auto) 0.1 K/mm3 (0.0-0.1); Basophils % (Auto) 0.7 % (0.0-1.8); Eosinophils # (Auto) 0.2 K/mm3 (0.0-0.4); Eosinophils % (Auto) 1.7 % (0.0-4.3); Hematocrit 38.4 % (30.3-42.9); Hemoglobin 12.6 gm/dl (10.1-14.3); Lymphocytes # (Auto) 2.1 K/mm3 (1.2-5.4); Lymphocytes % (Auto) 21.5 % (13.4-35.0); Mean Corpuscular HGB Conc 33 % (30-34); Mean Corpuscular Volume 85 fl (79-97); Monocytes # (Auto) 0.7 K/mm3 (0.0-0.8); Monocytes % (Auto) 7.3 % (0.0-7.3); Platelet Count 201 K/mm3 (140-440); Red Blood Count 4.52 M/mm3 (3.65-5.03)
[2020-07-24 01:25] LABS: Alanine Aminotransferase 16 units/L (7-56); Albumin 4.2 g/dL (3.9-5); Blood Urea Nitrogen 13 mg/dL (7-17); Calcium 8.9 mg/dL (8.4-10.2)
[2020-07-24 01:25] LABS: Bilirubin,Urine NEG (Negative); Blood,Urine LG (Negative); Color,Urine Yellow (Yellow); Mucus,Urine FEW /HPF; Protein,Urine <15 mg/dL mg/dL (Negative); Urobilinogen,Urine < 2.0 mg/dL (<2.0)
[2020-07-24 01:26] LABS: BUN/Creatinine Ratio 22
[2020-07-24 01:28] LABS: RBC,Urine > 182.0 /HPF (0.0-6.0)
--- NOTE | 2020-07-24 02:12 | Cat Scan Report ---
CT ABDOMEN AND PELVIS WITH CONTRAST HISTORY: Lower abdominal pain. COMPARISON: None. TECHNIQUE: CT images of the abdomen and pelvis were obtained following administration of intravenous contrast. All CT scans at this location are performed using CT dose reduction for ALARA by means of automated exposure control. CONTRAST: 100 ml of intravenous contrast administered. FINDINGS: Lungs/bones: Lung bases are clear. No acute osseous abnormality identified. The femoral neck fixatio n is intact without complication. Mild DJD in the left hip. Abdomen/pelvis: The liver, gallbladder, spleen, pancreas, adrenals, kidneys, and proximal GI tract a ppear unremarkable. Urinary bladder is unremarkable with no pelvic free fluid or acute colonic abnormality identified. Th e appendix is normal. There is a metallic device along the left lateral margin of the uterine fundus. IMPRESSION: 1. Metallic density in the left hemipelvis as outlined above abutting the uterus. One differential co nsideration would be an IUD which perforated the uterine wall. There is no free fluid or inflammation to suggest hemorrhage or recent perforation but please correlate with the history and exam findings. Otherwise nothing acute. Signer Name: Joao De Los Santos MD Signed: 07/24/2020 2:07 AM Workstation Name: [id number]
--- NOTE | 2020-07-24 03:26 | Emergency Department Report ---
ED Female HPI - General Chief complaint: Abdominal Pain Stated complaint: PELVIC/BACK PAIN Source: patient Mode of arrival: Ambulatory Limitations: No Limitations - History of Present Illness Initial comments: Patient is a A1 35-year-old -H[place]ian female with past medical history of migraine headaches and hypertension who presents to the ED with complaint of persistent severe pelvic pain for over 3 months, worse in the last 1 week. Patient states that she had IUD placed a while ago in her uterus and had to be removed 4 months ago by her [employer] physician. Patient states that since then the pain has been persistent and constant and has been worsening. Patient states that he she was evaluated about 2 months ago at another hospital ER extensively and was advised that she may be having uterine fibroids and ovarian cysts. Patient states that the pain in her pelvic area has been worsening and that she was also evaluated by her [employer] physician 4 days ago and given Percocet for pain as well as tramadol but the patient states that despite taking these medications, the pelvic pain has persisted with nausea and that in the last 6 hours she has not been able to sleep because of constant severe pain. Patient denies vaginal bleeding, fever, chills, vomiting, dysuria, urinary frequency and urgency, chest pain, shortness of breath, diarrhea, change in vis ion, fall or traumatic injury. MD Complaint: pelvic pain, other (Urinary frequency and urgency, nausea) -: Gradual, month(s) (2) Location: suprapubic Radiation: non-radiating Severity scale (0 -10): 9 Quality: sharp, aching Consistency: constant Improves with: none Worsens with: movement Are you Now?: No Associated Symptoms: denies other symptoms, abdominal pain. denies: vaginal discharge, vaginal bleeding, nausea/vomiting, fever/chills, headaches, loss of appetite, dysuria, hematuria, seizure, shortness of breath, syncope, weakness - Related Data Sexually active: Yes : 3 Para: 2 A: 1 Home Medications Medication Instructions Recorded Confirmed Last Taken amLODIPine [Norvasc] 5 mg PO DAILY 03/22/20 03/23/20 03/23/20 06:30 lisinopriL [Zestril TAB] 40 mg PO QDAY 03/22/20 03/23/20 03/22/20 09:00 Previous Rx's Medication Instructions Recorded Last Taken Type Ibuprofen [Motrin] 800 mg PO Q8HR PRN #30 tablet 03/23/20 Unknown Rx Allergies Allergy/AdvReac Type Severity Reaction Status Date / Time No Known Allergies Allergy Unverified 03/22/20 17:40 ED Review of Systems ROS: Stated complaint: PELVIC/BACK PAIN Other details as noted in HPI Constitutional: denies: chills, fever Eyes: denies: eye pain, eye discharge, vision change ENT: denies: ear pain, throat pain Respiratory: denies: cough, shortness of breath, wheezing Cardiovascular: denies: chest pain, palpitations Endocrine: no symptoms reported Gastrointestinal: abdominal pain (Diffuse lower abdominal pain), nausea. den ies: diarrhea Genitourinary: denies: urgency, dysuria, discharge Musculoskeletal: denies: back pain, joint swelling, arthralgia Skin: denies: rash, lesions Neurological: denies: headache, weakness, paresthesias Psychiatric: denies: anxiety, depression Hematological/Lymphatic: denies: easy bleeding, easy bruising ED Past Medical Hx - Past Medical History Hx Hypertension: Yes Hx Heart Attack/AMI: No Hx Congestive Heart Failure: No Hx Diabetes: No Hx Deep Vein Thrombosis: No Hx Liver Disease: No Hx Renal Disease: No Hx Sickle Cell Disease: No Hx Headaches / Migraines: Yes (Migraines) Hx Seizures: No Hx Asthma: No Hx COPD: No Hx HIV: No - Surgical History Hx Pacemaker: No Hx Internal Defibrillator: No Additional Surgical History: , TUBAL LIGATION - Social History Smoking Status: Never Smoker Substance Use Type: None - Medications Home Medications: Home Medications Medication Instructions Recorded Confirmed Last Taken Type amLODIPine [Norvasc] 5 mg PO DAILY 03/22/20 03/23/20 03/23/20 06:30 History lisinopriL [Zestril TAB] 40 mg PO QDAY 03/22/20 03/23/20 03/22/20 09:00 History Ibuprofen [Motrin] 800 mg PO Q8HR PRN #30 tablet 03/23/20 Unknown Rx ED Physical Exam - General Limitations: No Limitations General appearance: alert, in no apparent distress - Head Head exam: Present: atraumatic, normocephalic, normal inspection - Eye Eye exam: Present: normal appearance, PERRL, EOMI Pupils: Present: normal accommodation - ENT ENT exam: Present: normal exam, normal orophraynx, mucous membranes moist, TM's normal bilaterally, normal external ear exam - Neck Neck exam: Present: normal inspection, full ROM - Respiratory Respiratory exam: Present: normal lung sounds bilaterally. Absent: respiratory distress, wheezes, rales, stridor, chest wall tenderness, accessory muscle use, decreased breath sounds - Cardiovascular Cardiovascular Exam: Present: regular rate, normal rhythm, normal heart sounds. Absent: systolic murmur, diastolic murmur, rubs, gallop - GI/Abdominal GI/Abdominal exam: Present: soft, tenderness (Palpable severe suprapubic tenderness with guarding), guarding, normal bowel sounds. Absent: rebound, hyperactive bowel sounds, hypoactive bowel sounds, organomegaly - Bi-manual exam: Present: other (Pelvic exam deferred, per patient's request) - Extremities Exam Extremities exam: Present: normal inspection, full ROM, normal capillary refill - Back Exam Back exam: Present: normal inspection, full ROM. Absent: tenderness, CVA tenderness (R), CVA tenderness (L), muscle spasm, paraspinal tenderness, vertebral tenderness - Neurological Exam Neurological exam: Present: alert, oriented X3, CN II-XII intact, normal gait, reflexes normal - Psychiatric Psychiatric exam: Present: normal affect, normal mood - Skin Skin exam: Present: warm, dry, intact, normal color. Absent: rash ED Course Vital Signs 07/23/20 22:41 Temperature 98.0 F Pulse Rate 101 H Respiratory 18 Rate Blood Pressure 132/85 O2 Sat by Pulse 99 Oximetry - Reevaluation(s) Reevaluation #1: 07/24/20 04:00 I paged and discussed the patient's case with the [employer] physician on-call Dr. Rodriguez who advised that the patient be admitted to her service to the mother- baby unit and that admission orders be placed on her behalf and she shall follow-up on the patient in the morning. She was advised that the patient be kept n.p.o. 07/24/20 04:55 ED Medical Decision Making - Lab Data Result diagrams: 07/24/20 00:25 07/24/20 00:25 - Radiology Data Radiology results: report reviewed, image reviewed [facility] [address] [place] [address] Cat Scan Report Signed Patient: RASHAUN YEE MR#: [id number] : 1985 Acct:[id number] Age/Sex: 35 / F ADM Date: 07/23/20 Loc: ED Attending Dr: Ordering Physician: KIMBERLEE ROSEN Date of Service: 07/24/20 Procedure(s): CT abdomen pelvis w con Accession Number(s): [id number] cc: KIMBERLEE ROSEN CT ABDOMEN AND PELVIS WITH CONTRAST HISTORY: Lower abdominal pain. COMPARISON: None. TECHNIQUE: CT images of the abdomen and pelvis were obtained following administration of intravenous contrast. All CT scans at this location are performed using CT dose reduction for ALARA by means of automated exposure control. CONTRAST: 100 ml of intravenous contrast administered. FINDINGS: Lungs/bones: Lung bases are clear. No acute osseous abnormality identified. The femoral neck fixation is intact without complication. Mild DJD in the left hip. Abdomen/pelvis: The liver, gallbladder, spleen, pancreas, adrenals, kidneys, and proximal GI tract appear unremarkable. Urinary bladder is unremarkable with no pelvic free fluid or acute colonic abnormality identified. The appendix is normal. There is a metallic device along the left lateral margin of the uterine fundus. IMPRESSION: 1. Metallic density in the left hemipelvis as outlined above abutting the uterus. One differential consideration would be an IUD which perforated the uterine wall. There is no free fluid or inflammation to suggest hemorrhage or recent perforation but please correlate w ith the history and exam findings. Otherwise nothing acute. Signer Name: Joao De Los Santos MD Signed: 07/24/2020 2:07 AM Workstation Name: [id number] Transcribed By: RASHEL Dictated By: Joao De Los Santos MD Electronically Authenticated By: Joao De Los Santos MD Signed Date/Time: 07/24/20206 DD/ 2 TD/TT: Print Cancel - Medical Decision Making This is a A1 35-year-old -H[place]ian female with past medical history of migraine headaches and hypertension who presents to the ED with complaint of persistent severe pelvic pain for over 3 months, worse in the last 1 week. Patient states that she had IUD placed a while ago in her uterus and had to be removed 4 months ago by her [employer] physician. Patient states that since then the pain has been persistent and constant and has been worsening. Patient states that he she was evaluated about 2 months ago at another hospital ER extensively and was advised that she may be having uterine fibroids and ovarian cysts. Patient states that the pain in her pelvic area has been worsening and that she was also evaluated by her [employer] physician 4 days ago and given Perc ocet for pain as well as tramadol but the patient states that despite taking these medications, the pelvic pain has persisted with nausea and that in the last 6 hours she has not been able to sleep because of constant severe pain. In the ED, patient is alert and oriented x3 and is not in any distress but tachycardic and afebrile in triage. Patient was treated for pain in the ED and lab test results were reviewed and are all nonactionable. Abdomen pelvis CT scan with contrast showed metallic density in the left hemipelvis as outlined above abutting the uterus. One differential consideration would be an IUD which perforated the uterine wall. There is no free fluid or inflammation to suggest hemorrhage or recent perforation but please correlate with the history and exam findings. These findings are discussed with the patient's [employer] physician Dr. Rodriguez who was also the [employer] physician continuous improvement lead and who advised that the patient be admitted to her service at the mother-baby unit, and be given pain medication as needed and she shall follow-up with the patient in the morning. This plan was discussed with the patient who agreed with the plan of care. - Differential Diagnosis PID; Ovarian cyst; UTI; Fibroids; Appendicitis; Critical care attestation.: If time is entered above; I have spent that time in minutes in the direct care of this critically ill patient, excluding procedure time. ED Disposition Clinical Impression: Recurrent lower abdominal pain IUD mechanical complication Qualifiers: Mechanical complication type: displacement Encounter type: initial encounter Qualified Code(s): T83.32XA - Displacement of intrauterine contraceptive device, initial encounter Disposition: 09 OP ADMIT IP TO THIS HOSP Is pt being admited?: Yes Does the pt Need Aspirin: No Condition: Stable Instructions: Abdominal Pain (ED) Time of Disposition: 04:35 Print Language: IVORIAN
[2020-07-24] MEDS ORDERED: MORPHINE 4 MG/1 ML INJ IV ONE (05:00)
[2020-07-24] MEDS ORDERED: SODIUM CHLORIDE 0.9% 1000 ML 1,000 ML IV SCH (05:00)
[2020-07-24] MEDS ORDERED: MORPHINE 2 MG/1 ML INJ IV PRN (08:44)
[2020-07-24] MEDS ORDERED: BUTALB/ACETAMINOPHEN/CAFFEINE TAB PO PRN (09:00)
[2020-07-24] MEDS: MORPHINE 4 MG/1 ML INJ IV PRN ×3 (09:47→22:17)
--- NOTE | 2020-07-24 11:01 | Short Stay Summary ---
Short Stay Documentation Date of service: 07/24/20 Narrative H&P: 35y/o who presents with acute pelvic pain. The patient was seen in the ED with findings of a metallic density in her left pelvis. The patient notes acute worsening of her pain at home. She has been evaluated in the office for symptoms without improvement with home pain meds. - History Principal diagnosis: Acute pelvic pain Past Medical History: hypertension, migraines, other (obesity) Past Surgical History: , Other (D&C; hysteroscopic removal of IUD; laparoscopy;hip surgery with internal fixation;tubal ligation) Social history: single - Allergies and Medications Current Medications: Allergies No Known Allergies Allergy (Verified 07/24/20 09:50) Home Medications Medication Instructions Recorded Confirmed Last Taken Type amLODIPine [Norvasc] 5 mg PO DAILY 03/22/20 07/24/20 03/23/20 06:30 History lisinopriL [Zestril TAB] 40 mg PO QDAY 03/22/20 07/24/20 03/22/20 09:00 History Ibuprofen [Motrin] 800 mg PO Q8HR PRN #30 tablet 03/23/20 07/24/20 Unknown Rx Active Medications Acetaminophen/Butalbital/Caffeine (Butalb/Acetaminophen/Caffeine Tab) 2 tab PO Q6H PRN PRN Reason: Headache Last Admin: 07/24/20 09:02 Dose: 2 tab Documented by: Sodium Chloride (Nacl 0.9% 1000 Ml) 1,000 mls @ 125 mls/hr IV DIRECT ZACARIAS Last Admin: 07/24/20 05:28 Dose: 125 mls/hr Documented by: Morphine Sulfate (Morphine 4 Mg/1 Ml Inj) 4 mg IV Q4H PRN PRN Reason: Pain , Severe (7-10) Last Admin: 07/24/20 09:47 Dose: 4 mg Documented by: - Physical exam General appearance: mild distress, obese Integumentary: no rash HEENT: Atraumatic Lungs: Clear to auscultation Breasts: deferred Heart: Regular rate Gastrointestinal: normal - Brief post op/procedure progress note Date of procedure: 07/25/20 Pre-op diagnosis: ACute pelvic pain Post-op diagnosis: same Procedure: Laparoscopy Lysis of adhesion Removal Filshie clips Anesthesia: DIDI Surgeon: BENJY THOMPSON Estimated blood loss: minimal Pathology: list (Filshie clips) Specimen disposition: to lab Condition: stable - Hospital course Hospital course: The patient was admitted through the emergency department secondary to worsening pelvic pain. A laparoscopy was performed with findings of omental adhesions to the anterior abdominal wall. Please see operative note for details of surgery. Postoperative course was uneventful. - Disposition Condition at discharge: Good Disposition: DC-01 TO HOME OR SELFCARE Short Stay Discharge Plan Activity: other (Pelvic rest for 1 week) Diet: regular Additional Instructions: Patient may follow-up with Dr. Thompson in 2 weeks Patient may return to work in 1 week Prescriptions: Ibuprofen [Motrin] 800 mg PO Q8HR PRN #30 tablet PRN Reason: Pain , Severe (7-10) oxyCODONE /ACETAMINOPHEN [Percocet 5/325] 1 tab PO Q6HR PRN #30 tablet PRN Reason: Pain
[2020-07-24] MEDS: amLODIPine 10 MG TAB PO SCH (13:21)
[2020-07-24] MEDS: LISINOPRIL 40 MG TAB PO SCH (13:21)
[2020-07-24] MEDS: KETOROLAC 30 MG/1 ML INJ IV SCH (20:12)
[2020-07-24] MEDS ORDERED: KETOROLAC 30 MG/1 ML INJ IV SCH (22:00)
[2020-07-25] MEDS: KETOROLAC 30 MG/1 ML INJ IV SCH ×2 (04:03→11:54)
[2020-07-25] MEDS ORDERED: KETOROLAC 30 MG/1 ML INJ ONE (06:56)
[2020-07-25] MEDS ORDERED: ROCURONIUM 50 MG/5 ML INJ IV ONE (06:56)
[2020-07-25] MEDS ORDERED: ONDANSETRON 4 MG/2 ML INJ ONE (06:56)
[2020-07-25] MEDS ORDERED: LIDOCAINE MPF (2%) 20 MG/1 ML VIAL 5 ML ONE (06:56)
[2020-07-25] MEDS ORDERED: dexAMETHasone 20 MG/5 ML VIAL ONE (06:56)
[2020-07-25] MEDS ORDERED: propofoL 200 MG/20 ML VIAL IV ONE (06:57)
--- NOTE | 2020-07-25 06:57 | Anesthesia Consultation ---
Anesthesia Consult and Med Hx Date of service: 07/25/20 - Airway Anesthetic Teeth Evaluation: Good ROM Head & Neck: Adequate Mental/Hyoid Distance: Adequate Mallampati Class: Class II Intubation Access Assessment: Good - Pulmonary Exam CTA: Yes - Cardiac Exam Cardiac Exam: RRR - Pre-Operative Health Status ASA Pre-Surgery Classification: ASA2 Proposed Anesthetic Plan: General - Pulmonary Hx Smoking: No Hx Asthma: No Hx Respiratory Symptoms: No (+2FS) SOB: No COPD: No Hx Pneumonia: No Hx Sleep Apnea: No - Cardiovascular System Hx Hypertension: Yes Hx Coronary Artery Disease: No Hx Heart Attack/AMI: No Hx Angina: No Hx Percutaneous Transluminal Coronary Angioplasty (PTCA): No Hx Cardia Arrhythmia: No Hx Pacemaker: No Hx Internal Defibrillator: No Hx Valvular Heart Disease: No Hx Heart Murmur: No Hx Peripheral Vascular Disease: No - Central Nervous System Hx Neuromuscular Disorder: No Hx Seizures: No CVA: No Hx Back Pain: No Hx Psychiatric Problems: No - Gastrointestinal Hx Ulcer: No Hx Gastroesophageal Reflux Disease: No - Endocrine Hx Renal Disease: No Hx End Stage Renal Disease: No Hx Cirrhosis: No Hx Liver Disease: No Hx Insulin Dependent Diabetes: No Hx Non-Insulin Dependent Diabetes: No Hx Thyroid Disease: No Hx Hypothyroidism: No Hx Hyperthyroidism: No - Hematic Hx Anemia: No Hx Sickle Cell Disease: No - Other Systems Hx Alcohol Use: No Hx Substance Use: No Hx Cancer: No Hx Obesity: Yes
--- NOTE | 2020-07-25 06:58 | Anesthesia Day of Surgery ---
Anesthesia Day of Surgery - Day of Surgery Patient Examined: Yes Patient H&P Reviewed: Yes Patient is NPO: Yes
[2020-07-25] MEDS ORDERED: fentaNYL 100 MCG/2 ML INJ ONE (06:59)
[2020-07-25] MEDS ORDERED: MIDAZOLAM 2 MG/2 ML INJ IV SCH (07:00)
[2020-07-25] MEDS ORDERED: BUPIVACAINE/PF (0.5%) 5 MG/1 ML 30 ML VIAL INFILTRATI ONE ×2 (07:12→08:15)
[2020-07-25] MEDS ORDERED: NEOSTIGMINE 10MG/10 ML INJ MDV ONE (07:51)
[2020-07-25] MEDS ORDERED: GLYCOPYRROLATE 0.4 MG/2 ML INJ ONE (07:51)
[2020-07-25] MEDS ORDERED: LACTATED RINGERS 1,000 ML IV SCH (08:00)
[2020-07-25] MEDS ORDERED: SODIUM CHLORIDE 0.9% IRR 1,500 ML BOTTLE IR ONE (08:15)
--- NOTE | 2020-07-25 08:38 | Operative Report ---
Operative Report Operative Report: Date of surgery: July 25, 2020 Preoperative diagnosis: Acute onset of pelvic pain Postoperative diagnosis: Same as above Procedure: Laparoscopy; lysis of adhesions; removal of Filshie clips Surgeon: Yissel Hardy M.D. Anesthesia: General endotracheal anesthesia Estimated blood loss: Minimal Findings: Multiple omental adhesions to the anterior abdominal wall; Filshie clips located in the left hemipelvis Indication: 35-year-old -0-0-2 with a history of acute onset of pelvic pain that had been unresolved with medical management. The patient elected to undergo surgical management Procedure: The patient was taken to the operating room and given general endotracheal anesthesia without complication. The patient is prepped and draped in a normal sterile fashion. A bivalve speculum was placed in the patient's vagina and a single-tooth tenaculum was placed on the anterior lip of the cervix .A uterine acorn manipulator was placed, and the bivalve speculum was then removed. Attention was then turned to the patient's abdomen where a 5 mm infraumbilical skin incision was then made. A Veress needle was placed and peritoneal entry was verified water-filled syringe. Insufflation of the peritoneal cavity was performed with CO2 gas. A 5 mm trocar was placed and the laparoscope was then inserted. The patient was then placed in Trendelenburg. A 7 mm left lateral skin incision was then made. Under direct visualization a 7 mm trocar was then placed. General survey of the patient's abdomen revealed multiple omental adhesions to the anterior abdominal wall; Filshie clips located in the left pelvis near the cornua of the uterus. The monopolar scissors were used to lyse the omental adhesions. The uterus was noted to be normal in size with evidence of a prior tubal ligation. The Filshie clips were removed through the 7 mm trocar. There was no evidence of any endometriotic implants. The remainder of the pelvis was unremarkable. The trocars were then removed. The pneumoperitoneum was then released. The 5 mm trocar laparoscope was then removed. The skin incisions were then closed with 4-0 Monocryl. The incisions were injected with quarter percent Marcaine. Dressings were applied to the incision. The vaginal instruments were then removed atraumatically. Then successfully extubated and taken to the recovery room. All sponge laps and needle counts were correct x2.
[2020-07-25] MEDS: MORPHINE 4 MG/1 ML INJ IV PRN (09:49)
[2020-07-25] MEDS ORDERED: ONDANSETRON 4 MG/2 ML INJ IV PRN (10:00)
[2020-07-25] MEDS ORDERED: HYDROmorphone 1 MG/1 ML INJ IV PRN ×2 (10:00)
[2020-07-25] MEDS: LISINOPRIL 40 MG TAB PO SCH (10:54)
[2020-07-25] MEDS: amLODIPine 10 MG TAB PO SCH (10:54)
[2020-07-25 13:05] VITALS: BP 116/55
== END 2020-07-25 15:30 | disposition home or self-care (01) ==
LOC: ED 21:22 → OB 07-24 05:05
PROVIDERS: ADMIT Obstetrics & Gynecology; ATTEND Obstetrics & Gynecology
DX: R10.2 Pelvic and perineal pain (principal); Z20.822 Contact with and (suspected) exposure to COVID-19; T83.32XA Displacement of intrauterine contraceptive device, initial encounter; I10 Essential (primary) hypertension; G43.909 Migraine, unspecified, not intractable, without status migrainosus; Z98.891 History of uterine scar from previous surgery; Z98.890 Other specified postprocedural states; Z98.51 Tubal ligation status
CPT/HCPCS: 36415; 49329; 74177; 80053; 81001; 83690; 84703; 85025; 88302; 96361; 96374; 96375; 96376; 99285; G0378; J1100; J1170; J1885; J2250; J2270; J2405; J2704; J2710; J3010; J7030; J7120; Q9967; U0003

== ENCOUNTER 2020-11-02 10:58 | Observation (INO) | payer BC, OTHER ==
[2020-10-31 11:22] LABS: Basophils # (Auto) 0.1 K/mm3 (0.0-0.1); Basophils % (Auto) 0.6 % (0.0-1.8); Eosinophils # (Auto) 0.1 K/mm3 (0.0-0.4); Eosinophils % (Auto) 0.8 % (0.0-4.3); Hematocrit 40.7 % (30.3-42.9); Hemoglobin 13.3 gm/dl (10.1-14.3); Lymphocytes # (Auto) 1.6 K/mm3 (1.2-5.4); Lymphocytes % (Auto) 18.5 % (13.4-35.0); Mean Corpuscular HGB Conc 33 % (30-34); Mean Corpuscular Volume 86 fl (79-97); Monocytes # (Auto) 0.4 K/mm3 (0.0-0.8); Monocytes % (Auto) 4.4 % (0.0-7.3); Platelet Count 224 K/mm3 (140-440); Red Blood Count 4.75 M/mm3 (3.65-5.03); Red Cell Distribution Width 14.8 % (13.2-15.2)
[2020-10-31 11:42] LABS: BUN/Creatinine Ratio 23; Blood Urea Nitrogen 16 mg/dL (7-17); Calcium 9.5 mg/dL (8.4-10.2); Hemolysis Index 3
--- NOTE | 2020-10-31 16:58 | Anesthesia Consultation ---
Anesthesia Consult and Med Hx Date of service: 11/02/20 - Airway Anesthetic Teeth Evaluation: Chipped ROM Head & Neck: Adequate Mental/Hyoid Distance: Adequate Mallampati Class: Class II Intubation Access Assessment: Good - Pre-Operative Health Status ASA Pre-Surgery Classification: ASA2 Proposed Anesthetic Plan: General - Pulmonary Hx Smoking: No Hx Asthma: No Hx Respiratory Symptoms: No (+2FS) SOB: No COPD: No Home Oxygen Therapy: No Hx Pneumonia: No Hx Sleep Apnea: No - Cardiovascular System Hx Hypertension: Yes Hx Coronary Artery Disease: No Hx Heart Attack/AMI: No Hx Angina: No Hx Percutaneous Transluminal Coronary Angioplasty (PTCA): No Hx Cardia Arrhythmia: No Hx Pacemaker: No Hx Internal Defibrillator: No Hx Valvular Heart Disease: No Hx Heart Murmur: No Hx Peripheral Vascular Disease: No - Central Nervous System Hx Neuromuscular Disorder: No Hx Seizures: No CVA: No Hx Back Pain: No Hx Psychiatric Problems: No - Gastrointestinal Hx Ulcer: No Hx Gastroesophageal Reflux Disease: No - Endocrine Hx Renal Disease: No Hx End Stage Renal Disease: No Hx Cirrhosis: No Hx Liver Disease: No Hx Insulin Dependent Diabetes: No Hx Non-Insulin Dependent Diabetes: No Hx Thyroid Disease: No Hx Hypothyroidism: No Hx Hyperthyroidism: No - Hematic Hx Anemia: No Hx Sickle Cell Disease: No - Other Systems Hx Alcohol Use: No Hx Substance Use: No Hx Cancer: No Hx Obesity: Yes - Additional Comments Anesthesia Medical History Comments: Was here [id number] and [id number]
--- NOTE | 2020-11-02 07:44 | Short Stay Summary ---
Short Stay Documentation Date of service: 11/02/20 Narrative H&P: 35-year-old -0-1-2 with a history of worsening chronic pelvic pain. The patient reports that her symptoms are debilitating and she was unable to perform daily activities. The patient has recently undergone a laparoscopy with findings of pelvic adhesions and had temporarily improvement in her symptoms however currently notes that her pain is unbearable. She is elected to undergo surgical management of her symptoms. The patient has been made aware that hysterectomy may not be curative of her chronic pelvic pain. - History Principal diagnosis: Chronic pelvic pain Past Medical History: migraines Past Surgical History: , Other (Laparoscopy; hip surgery;) Social history: single - Allergies and Medications Current Medications: Allergies No Known Allergies Allergy (Verified 07/24/20 09:50) Home Medications Medication Instructions Recorded Confirmed Last Taken Type amLODIPine [Norvasc] 5 mg PO DAILY 03/22/20 10/31/20 03/23/20 06:30 History lisinopriL [Zestril TAB] 40 mg PO QDAY 03/22/20 10/31/20 03/22/20 09:00 History Active Medications Celecoxib (Celecoxib 200 Mg Cap) 400 mg PO PREOP NR Stop: 11/02/20 23:59 Gabapentin (Gabapentin 300 Mg Cap) 600 mg PO PREOP NR Stop: 11/02/20 23:59 Lactated Ringer's (Lactated Ringers) 1,000 mls @ 125 mls/hr IV DIRECT ZACARIAS Midazolam HCl (Midazolam 2 Mg/2 Ml Inj) 2 mg IV PREOP NR Stop: 11/02/20 23:59 - Physical exam General appearance: mild distress Integumentary: no rash HEENT: Atraumatic Lungs: Clear to auscultation Breasts: deferred Heart: Regular rate Gastrointestinal: normal Female Genitourinary: deferred Rectal Exam: deferred Extremities: no ischemia - Brief post op/procedure progress note Date of procedure: 11/02/20 Pre-op diagnosis: Chronic pelvic pain Post-op diagnosis: same Procedure: Robotic hysterectomy bilateral salpingectomy Anesthesia: DIDI Surgeon: BENJY THOMPSON Estimated blood loss: minimal Pathology: list (Uterus, cervix, bilateral tubes) Specimen disposition: to lab Condition: stable - Hospital course Hospital course: The patient was admitted the day of surgery underwent a robotic hysterectomy and bilateral salpingectomy. Please see operative note for details of surgery. Her postoperative course was uneventful. - Disposition Condition at discharge: Good Disposition: DC-01 TO HOME OR SELFCARE Short Stay Discharge Plan Activity: other (Pelvic rest for 6 weeks) Diet: regular Additional Instructions: Patient can schedule follow-up in [address] Thompson No tub baths for 4 weeks Patient may shower
[~2020-11-02 10:58] MED LIST: ACETAMINOPHEN 500 MG TAB PO ONE; CELECOXIB 200 MG CAP PO NR; GABAPENTIN 300 MG CAP PO NR; MAGNESIUM OXIDE 400 MG TAB PO ONE; MIDAZOLAM 2 MG/2 ML INJ IV NR; ceFAZolin/Water 2 GM/20 ML 2 GM/20 ML SYRINGE IV NR
[2020-11-02] MEDS ORDERED: ACETAMINOPHEN 500 MG TAB ONE (11:49)
[2020-11-02] MEDS ORDERED: MAGNESIUM OXIDE 400 MG TAB PO ONE (11:50)
[2020-11-02] MEDS ORDERED: PHENYLEPHRINE/NS 1,000 MCG/10 ML SYRINGE (OR USE) IV ONE (12:00)
[2020-11-02] MEDS ORDERED: GLYCOPYRROLATE 0.4 MG/2 ML INJ ONE (12:00)
[2020-11-02] MEDS ORDERED: NEOSTIGMINE 10MG/10 ML INJ MDV ONE (12:00)
[2020-11-02] MEDS ORDERED: ROCURONIUM 50 MG/5 ML INJ IV ONE (12:02)
[2020-11-02] MEDS ORDERED: HYDROmorphone 1 MG/1 ML INJ ONE (12:02)
[2020-11-02] MEDS ORDERED: ONDANSETRON 4 MG/2 ML INJ ONE (12:02)
[2020-11-02] MEDS ORDERED: dexAMETHasone 20 MG/5 ML VIAL ONE (12:02)
[2020-11-02] MEDS ORDERED: fentaNYL 100 MCG/2 ML INJ ONE (12:02)
[2020-11-02] MEDS ORDERED: LIDOCAINE MPF (2%) 20 MG/1 ML VIAL 5 ML ONE (12:02)
[2020-11-02] MEDS ORDERED: propofoL 200 MG/20 ML VIAL IV ONE (12:03)
--- NOTE | 2020-11-02 12:26 | Anesthesia Day of Surgery ---
Anesthesia Day of Surgery - Day of Surgery Patient Examined: Yes Patient H&P Reviewed: Yes Patient is NPO: Yes
[2020-11-02] MEDS: LACTATED RINGERS 1,000 ML IV SCH (12:35)
[2020-11-02] MEDS ORDERED: MIDAZOLAM 2 MG/2 ML INJ IV ONE (12:55)
[2020-11-02] MEDS ORDERED: HYDROmorphone 1 MG/1 ML INJ IV PRN (13:00)
[2020-11-02] MEDS ORDERED: ONDANSETRON 4 MG/2 ML INJ IV PRN ×2 (13:30→20:00)
[2020-11-02] MEDS ORDERED: NEOMY 40 MG/POLYMYXIN B 200,000 UNITS/ML (GU) AMPULE IR ONE ×2 (13:31→15:02)
[2020-11-02] MEDS ORDERED: SODIUM CHLORIDE 0.9% IRR 1,500 ML BOTTLE IR ONE (15:02)
[2020-11-02] MEDS ORDERED: SODIUM CHLORIDE 0.9% IRRIG SOLN 2000 ML IR ONE (15:03)
--- NOTE | 2020-11-02 15:31 | Operative Report ---
Operative Report Operative Report: Date of surgery: November 02, 2020 Preoperative diagnoses: Chronic pelvic pain Postoperative diagnoses: Same as above Procedure: Robotic hysterectomy; bilateral salpingectomy Surgeon: Yissel Rodriguez M.D. Instructional Technology Instructor: Ivania Barfield Anesthesia: Gen. endotracheal anesthesia Estimated blood loss: 25 mL Pathology: Uterus, cervix, bilateral tubes Indication: 35-year-old -0-1-2 with a history of worsening chronic pelvic pain. The patient reported that her pain was debilitating and have failed medical management. She elected to undergo definitive surgical management. Procedure: The patient was taken to the operating room and given general endotracheal anesthesia without complication after a time out was performed confirming the surgery and identity of the patient. She was prepped and draped in a normal sterile fashion. A bivalve speculum was placed in the patient's vagina and a single-tooth tenaculum placed on the anterior lip of the cervix. The uterus was sounded with the uterine sound. A stay suture with 0-vicryl was placed at 12 o'clock on the anterior cervix. A Vecast uterine manipulator was placed in the bivalve speculum was then removed. A warm laparotomy sponge was placed in the vagina. Attention was then turned to the patient's abdomen where a 12millimeter supra umbilical skin incision was then made. A Veress needle was placed and peritoneal entry was verified water-filled syringe. Insufflation of the peritoneal cavity was performed with CO2 gas. The 12 mm trocar was then placed under direct visualization. An additional 8 mm robotic trocar was placed on the patient's left and right lateral side just opposite of the supraumbilical trocar. An additional 5 mm right lateral trocar was then placed as the accessory port. The supraumbilical 12 mm trocar site was closed with the Nick Sofia device and 0-vicryl suture. The patient was then placed in steep Trendelenburg. The da Ade robot was then engaged. A fenestrated forcep was placed in arm 2 and a vessel sealer was placed in arm 1. General survey of the abdomen and pelvis revealed a normal size uterus with normal tubes and ovaries bilaterally. The surgeon then transferred to the surgical console. The mesosalpinx was then isolated on the right. The vessel sealer was used to c oagulate the mesosalpinx which was then transected. The tube was transected from the ovary. The tubo-ovarian ligament was then coagulated and transected. The round ligament was then coagulated and transected also. The vesicouterine peritoneum was then entered from the patient's right side. The uterine vessels were then coagulated with the vessel sealer. The vessels were then transected . Attention was then turned to the patient's left side where the tubo-ovarian ligament and mesosalpinx were again isolated coagulated and transected. The vesical peritoneum was then entered from the left and joined in the midline. Peritoneum was reflected off of the lower uterine segment. Uterine vessels were then coagulated and then transected. The blood supply to the uterus was adequately contained, a posterior colpotomy was made. The V care ring was visualized. Posterior colpotomy was created with the monopolar scissors. The incision was continued circumferentially until anterior colpotomy was made. The cervix and uterus were amputated from the vaginal cuff. The uterus was then removed along with the tubes bilaterally through the vagina and a warm laparotomy sponge was placed and maintain the pneumoperitoneum. The vaginal cuff was then closed in a running fashion with V lock suture. Irrigation of the pelvis was performed. Hemoblast was applied to the incision. The [employer] robot was undocked. The trocars were removed and the insuffliation was released. The skin was then reapproximated with 4-0 Monocryl. The tissue was sent to pathology which included the cervix, bilateral tubes and uterus. The patient was then successfully extubated. She was then taken to the recovery room in stable condition. All sponge laps and needle counts were correct x2.
[2020-11-02] MEDS ORDERED: BUPIVACAINE/PF (0.25%) 2.5 MG/ML 30 ML VIAL INFILTRATI ONE (15:34)
[2020-11-02] MEDS ORDERED: dexAMETHasone 4 MG/ML VIAL ONE (15:34)
[2020-11-02] MEDS: HYDROmorphone 1 MG/1 ML INJ IV PRN ×6 (16:17→17:37)
--- NOTE | 2020-11-02 17:00 | Post Anesthesia Evaluation ---
- Post Anesthesia Evaluation Patient Participated: Yes Airway Patent: Yes Stable Respiratory Function: Yes Nausea/Vomiting: No Temp > 96.8F: Yes Pain Manageable: Yes Adequeate Hydration: Yes Anesthesia Complications: No Block Receding Appropriately: No (Just placed postop) Patient on Ventilator: No
[2020-11-02] MEDS ORDERED: MEPERIDINE 25 MG/1 ML INJ ONE (18:01)
[2020-11-02] MEDS ORDERED: diphenhydrAMINE 50 MG/ML VIAL ONE (18:01)
[2020-11-02] MEDS ORDERED: MEPERIDINE 25 MG/1 ML INJ IV PRN ×2 (18:04→18:26)
[2020-11-02] MEDS ORDERED: diphenhydrAMINE 50 MG/ML VIAL IV ONE ×2 (18:04→18:26)
[2020-11-02] MEDS ORDERED: fentaNYL 100 MCG/2 ML INJ IV ONE ×2 (18:29→20:00)
[2020-11-02] MEDS ORDERED: KETOROLAC 30 MG/1 ML INJ ONE (19:09)
[2020-11-02] MEDS: KETOROLAC 30 MG/1 ML INJ IV PRN (19:10)
[2020-11-02] MEDS ORDERED: KETOROLAC 30 MG/1 ML INJ IV PRN (19:10)
[2020-11-02] MEDS ORDERED: oxyCODONE /ACETAMINOPHEN 5-325MG TAB PO ONE (20:00)
[2020-11-02] MEDS ORDERED: MORPHINE 4 MG/1 ML INJ IV PRN (20:00)
[2020-11-02] MEDS ORDERED: ACETAMINOPHEN 325 MG TAB PO PRN (20:00)
[2020-11-03] MEDS: KETOROLAC 30 MG/1 ML INJ IV PRN (00:46)
[2020-11-03] MEDS: oxyCODONE /ACETAMINOPHEN 5-325MG TAB PO PRN ×2 (01:16→09:05)
[2020-11-03] MEDS: MORPHINE 4 MG/1 ML INJ IV PRN ×2 (03:46→07:24)
[2020-11-03] MEDS: LACTATED RINGERS 1,000 ML IV SCH (03:48)
[2020-11-03 06:36] LABS: Hematocrit 36.4 % (30.3-42.9); Hemoglobin 11.8 gm/dl (10.1-14.3)
[2020-11-03 08:51] VITALS: BP 151/78
--- NOTE | 2020-11-03 09:49 | Event Note ---
Date: 11/03/20 The patient was admitted overnight for pain management. She has a history of chronic pelvic pain and her pain was unable to be controlled in in the PACU. The patient reports feeling better today and has voided without difficulty and is tolerating her diet.
== END 2020-11-03 10:10 | disposition home or self-care (01) ==
LOC: OR 10:58 → OB 19:09
PROVIDERS: ADMIT Obstetrics & Gynecology; ATTEND Obstetrics & Gynecology
DX: N94.6 Dysmenorrhea, unspecified (principal); Z20.822 Contact with and (suspected) exposure to COVID-19; R10.2 Pelvic and perineal pain; G43.909 Migraine, unspecified, not intractable, without status migrainosus; Z98.891 History of uterine scar from previous surgery; Z90.710 Acquired absence of both cervix and uterus; Z98.890 Other specified postprocedural states
CPT/HCPCS: 36415; 58552; 80048; 84703; 85014; 85018; 85025; 86850; 86900; 86901; 88307; 96374; 96375; 96376; A4217; G0378; J0690; J1100; J1170; J1200; J1885; J2175; J2250; J2270; J2370; J2405; J2704; J2710; J3010; J7120; S2900; U0003

== ENCOUNTER 2021-05-17 07:54 | Outpatient (CLI) | payer BC ==
--- NOTE | 2021-05-17 09:16 | Fluoroscopy Report ---
BARIUM SWALLOW Indication: FUNCTIONAL DYSPEPSIA K30. Technique: Single contrast barium technique utilized to evaluate the esophagus. FINDINGS: To begin the exam, swallowing was evaluated in the lateral position under direct fluorosco py. Swallowing was normal. No mucosal irregularity, mass, mass effect, or critical stenosis. There were no abnormal tertiary c ontractions as seen with dysmotility. No gastroesophageal reflux. IMPRESSION: Unremarkable exam. Fluoroscopic time: 0.9 minutes Number of fluoroscopic images: 24 Signer Name: Jarrett James Jr, MD Signed: 05/17/2021 9:11 AM Workstation Name: [id number]
== END 2021-05-17 07:55 | disposition home or self-care (01) ==
LOC: FLUORO 07:54
PROVIDERS: ATTEND Surgery
DX: K30 Functional dyspepsia (principal)
CPT/HCPCS: 74220

== ENCOUNTER 2021-08-01 06:53 | Day surgery (SDC) | payer BC ==
[2021-08-01] MEDS ORDERED: SODIUM CHLORIDE 0.9% 1000 ML 1,000 ML IV SCH (07:00)
--- NOTE | 2021-08-01 07:44 | Anesthesia Day of Surgery ---
Anesthesia Day of Surgery - Day of Surgery Patient Examined: Yes Patient H&P Reviewed: Yes Patient is NPO: Yes
--- NOTE | 2021-08-01 07:44 | Anesthesia Consultation ---
Anesthesia Consult and Med Hx Date of service: 08/01/21 - Airway Anesthetic Teeth Evaluation: Good ROM Head & Neck: Adequate Mental/Hyoid Distance: Adequate Mallampati Class: Class III Intubation Access Assessment: Possibly Difficult - Pre-Operative Health Status ASA Pre-Surgery Classification: ASA2 Proposed Anesthetic Plan: MAC - Pulmonary Hx Smoking: No Hx Asthma: No Hx Respiratory Symptoms: No (+2FS) SOB: No COPD: No Hx Pneumonia: No Hx Sleep Apnea: No - Cardiovascular System Hx Hypertension: Yes (took amlodipine & lisinopril today) Hx Coronary Artery Disease: No Hx Heart Attack/AMI: No Hx Angina: No Hx Percutaneous Transluminal Coronary Angioplasty (PTCA): No Hx Cardia Arrhythmia: No Hx Pacemaker: No Hx Internal Defibrillator: No Hx Valvular Heart Disease: No Hx Heart Murmur: No Hx Peripheral Vascular Disease: No - Central Nervous System Hx Neuromuscular Disorder: No Hx Seizures: No CVA: No Hx Back Pain: No Hx Psychiatric Problems: No - Gastrointestinal Hx Ulcer: No Hx Gastroesophageal Reflux Disease: No - Endocrine Hx Renal Disease: No Hx End Stage Renal Disease: No Hx Cirrhosis: No Hx Liver Disease: No Hx Insulin Dependent Diabetes: No Hx Non-Insulin Dependent Diabetes: No Hx Thyroid Disease: No Hx Hypothyroidism: No Hx Hyperthyroidism: No - Hematic Hx Anemia: No Hx Sickle Cell Disease: No - Other Systems Hx Alcohol Use: No Hx Substance Use: No Hx Cancer: No Hx Obesity: Yes (BMI 47) - Additional Comments Anesthesia Medical History Comments: no hx of anesthetic complications
[2021-08-01] MEDS ORDERED: propofoL 200 MG/20 ML VIAL IV ONE ×2 (08:15→08:21)
[2021-08-01] MEDS ORDERED: LIDOCAINE MPF (2%) 20 MG/1 ML VIAL 5 ML ONE (08:15)
--- NOTE | 2021-08-01 08:35 | Operative Report ---
Operative Report Operative Report: DATE: 08/01/2021 SURGERY: Upper endoscopy. SURGEON: Andrew Suarez M.D. PROCEDURE: EGD with biopsy PRE OP DX: morbid obesity, GERD POST OP DX: morbid obesity, GERD, fundal mass TYPE OF ANESTHESIA: MAC. ESTIMATED BLOOD LOSS: None. COMPLICATIONS: None. SPECIMENS REMOVED: antral biopsy FINDINGS: 1. Small hiatal hernia. 2. fundal mucosal mass INDICATIONS:INDICATION FOR PROCEDURE: Patient is a 36-year-old female with a long history of morbid obesity. She is planned to have a weight loss procedure and is here for preoperative planning EGD. PROCEDURE DETAILS: After consent was reviewed, patient was taken back to the operating room where patient was placed in the left lateral decubitus position and a bite block was placed in the mouth. After a time-out was called, MAC anesthesia was initiated. I then passed the endoscope into her oropharynx, into her esophagus, visualized the entire esophagus, which was all within normal limits. Z-line was noted to about 35cm from incisors. I then visualized the stomach and the first portion of the duodenum and there were no abnormalities I could clearly visualize except for antral gastritis. A cold forceps biopsy of the antrum was taken and will be sent to pathology to evaluate for H.pylori. I then retroflexed the scope in the stomach and visualized the hiatus and I could see a small hiatal hernia. There was also noted to be a pedunculated mucosal mass close to the GE junction on the fundus side. I was unable to biopsy it due to sharp angle. I then desufflated the stomach and removed the endoscope. Patient tolerated procedure well and was transferred to recovery room in good and stable condition. Pt will be referred to GI for work up and repeat EGD for biopsy of mass.
--- NOTE | 2021-08-01 08:38 | Discharge Summary ---
Providers - Providers Date of Admission: 08/01/2021 Date of discharge: 08/01/21 Attending physician: JASON YATES MD Primary care physician: EITAN NUNN MD Hospitalization Reason for admission: pre-op egd for bariatric surgery Condition: Good Procedures: egd with bx Hospital course: Pt presented for a pre-op EGD as part of planning for up coming bariatric surgery. Procedure was uneventful and pt recovered well and was discharged to home. Pt was found to have a mucosal mass in the stomach that she will be referred to GI for work up. Disposition: 01 HOME / SELF CARE / HOMELESS Final Discharge Diagnosis (Prints w/discharge instructions): morbid obesity, dyspepsia, gastric mass Core Measure Documentation - Palliative Care Palliative Care/ Comfort Measures: Not Applicable - Core Measures Any of the following diagnoses?: none Exam - Physical Exam Narrative exam: unchanged from pre-op Plan Activity: advance as tolerated Diet: clear liquids Follow up with: EITAN NUNN MD [Primary Care Provider] - 7 Days
[2021-08-01] MEDS ORDERED: SUCRALFATE 1 GM/10 ML ORAL LIQD PO SCH (09:00)
[2021-08-01] MEDS ORDERED: PANTOPRAZOLE 40 MG TAB PO SCH (09:00)
--- NOTE | 2021-08-01 09:47 | Post Anesthesia Evaluation ---
- Post Anesthesia Evaluation Patient Participated: Yes Airway Patent: Yes Stable Respiratory Function: Yes Nausea/Vomiting: No Temp > 96.8F: Yes Pain Manageable: Yes Adequeate Hydration: Yes Anesthesia Complications: No
[2021-08-01 12:08] VITALS: BP 152/80
== END 2021-08-01 09:30 | disposition home or self-care (01) ==
LOC: GIO 06:53
PROVIDERS: ATTEND Surgery
DX: K21.9 Gastro-esophageal reflux disease without esophagitis (principal); E66.01 Morbid (severe) obesity due to excess calories; K44.9 Diaphragmatic hernia without obstruction or gangrene; K31.89 Other diseases of stomach and duodenum; I10 Essential (primary) hypertension; G43.909 Migraine, unspecified, not intractable, without status migrainosus; Z68.42 Body mass index [BMI] 45.0-49.9, adult; Z79.899 Other long term (current) drug therapy; Z98.51 Tubal ligation status; Z90.710 Acquired absence of both cervix and uterus; Z98.890 Other specified postprocedural states; Z98.891 History of uterine scar from previous surgery
CPT/HCPCS: 43239; 88305; 88342; J2704; J7030